=== PATIENT | female | born 1995 | race Two or more races ===

== ENCOUNTER 2016-12-09 05:31 | Inpatient (IN) | payer MEDICAID, OTHER ==
[~2016-12-09] VITALS: Ht 162.6 cm; Wt 89.4 kg
[2016-12-09] VITALS (7 sets, daily range): BP systolic 112–129; BP diastolic 70–81; PULSE 77–85; RESP 15–22; O2SAT 96–97
[~2016-12-09 05:31] MED LIST: ONDA8TAB10 PO
[2016-12-09] MEDS ORDERED: 0.9% Sodium Chloride 1,000 ML IV ONE ×2 (05:49→06:31)
[2016-12-09] MEDS ORDERED: Pantoprazole 4 mg/mL 10 mL Inj IVPUSH ONE (05:50)
[2016-12-09] MEDS ORDERED: Ondansetron 2 mg/mL 2 mL Inj IVPUSH ONE (05:50)
--- NOTE | 2016-12-09 06:08 | ED.REPORT ---
HPI-Abd Pain F Under 39 Date of Service Dec 09, 2016 ED Provider: Taylor Cha MD Patient is a 21 female who presents to the ED via EMS with RLQ and RUQ abdominal pain onset 1900 last evening. She reports that she can't sleep due to pain and was tossing and turning all night. She denies any other kinds of medical issues or allergies to medication. She denies cough and fever. Pt is not currently on control or sexually active. Dr. Daly is her PCP. Nursing Notes Stated Complaint: ABDOMINAL PAIN Chief Complaint: Female Abdominal Pain Nursing Notes Reviewed: Yes Allergies: Coded Allergies: No Known Allergies (Unverified Allergy, Unknown, 12/09/16) Scheduled PRN Ondansetron ODT (Ondansetron ODT) 8 Mg Tab.rapdis 8 MG PO Q4H PRN PRN For Nausea General Time Seen by MD: 06:06 Chief Complaint Abdominal pain Hx Obtained From: Patient Arrived By: Ambulance Sudden in Onset?: Yes Onset Occurred: 9 - 12 hours ago Symptom Duration: Since onset Progression since Onset: Unchanged Location: : Epigastric: RLQ: RUQ: Suprapubic Quality: Painful Radiation: : Does not radiate Severity: Current: Severe Recent Healthcare: No recent doctor visit, No recent hospitalization Similar Sx Previous: No Past Medical History Past Medical History Chlamydia in 2010 Reports: Asthma Past Surgical History None reported Smoking History Current Every Day Smoker Social History Drug Use: THC Other Social History: Local resident Ambulatory Status Independent Review of Systems Constitutional: Denies: Fever Respiratory: Denies: Non-productive cough GI: Reports: Abdominal pain, Denies: Vomiting Complete sys rev & neg: except as marked. Physical Exam Initial Vital Signs Vital Signs (First) Date Time Temp Pulse Resp B/P Pulse Ox O2 Delivery O2 Flow Rate FiO2 12/09/16 05:38 38.0 78 18 129/81 97 Room Air Initial VS: Reviewed Head / Eyes: Atraumatic, Normocephalic, PERRL ENT: Mucous membranes moist, Conjunctiva normal, No scleral icterus Neck: Supple, Non-tender, Full range of motion Extremities: Vascular intact, Neuro intact, No swelling, No tenderness Skin: Warm, Dry, No cyanosis Neurologic: Alert, Oriented, Nonfocal Psychiatric: Mood/affect normal, Behavior normal, Normal thought content General/Constitutional: Awake, Cooperative Distress / Hydration: Positive: Distress moderate Behavior: Positive: Anxious, Tearful Respiratory / Chest: Atraumatic, Breath sounds NL, Breath sounds = bilat, No respiratory distress, No rales, No rhonchi, No wheezing, No retractions Cardiovascular: Heart rate NL, Regular rhythm, Heart sounds NL, No gallop, No murmurs, No rubs Tenderness/Guarding/Rebound: Positive: Tender RLQ..., Tender RUQ..., Tender epigastric, Tender suprapubic Back: Atraumatic, Inspection NL, Full range of motion, Painless range of motion , Non-tender, No midline vertebral tend Interpretation & Diagnostics Interpretation & Diagnostics: ABDOMINAL US IMPRESSION: Normal gallbladder, normal kidney, appendix not seen. Wet read ED physician: Taylor Cha MD Lab Results Interpretation Result Diagram: 12/09/16 0530 12/09/16 0530 Test 12/09/16 05:30 12/09/16 07:33 White Blood Count 23.4th/mm3 (3.8-10.1) Red Blood Count 4.56mil/mm3 (3.90-5.20) Hemoglobin 14.1g/dL (12.0-15.6) Hematocrit 43.0% (35.0-46.0) Mean Corpuscular Volume 94.3fL (81-100) Mean Corpuscular Hemoglobin 30.9pg (27.0-35.0) Mean Corpuscular Hemoglobin Concent 32.8% (32.0-37.0) Red Cell Distribution Width 13.8% (12.3-15.4) Platelet Count 260bil/L (150-400) Neutrophils (%) (Auto) 86.2% (40-74) Lymphocytes (%) (Auto) 7.7% (14-46) Monocytes (%) (Auto) 4.5% (4-12) Eosinophils (%) (Auto) 1.2% (0-5) Basophils (%) (Auto) 0.1% (0-3) Hold Purple Top Tube Received (Received) Prothrombin Time 10.3sec (8.1-12.5) Prothromb Time International Ratio 0.96ratio Hold Blue Top Tube Received (Received) Sodium Level 139mEq/L (134-144) Potassium Level 4.5mEq/L (3.5-5.2) Chloride Level 100mEq/L (97-108) Carbon Dioxide Level 28mmol/L (18-29) Blood Urea Nitrogen 13mg/dL (6-20) Creatinine 0.96mg/dL (0.57-1.00) Estimat Glomerular Filtration Rate 104mL/min (>59) Glucose Level 98mg/dL (60-99) Calcium Level 9.3mg/dL (8.5-10.1) Magnesium Level 2.0mg/dL (1.6-2.6) Total Bilirubin 0.2mg/dL (0.0-1.2) Aspartate Amino Transf (AST/SGOT) 13U/L (0-50) Alanine Aminotransferase (ALT/SGPT) 9U/L (0-32) Alkaline Phosphatase 90U/L (25-150) Total Protein 7.9g/dL (6.4-8.4) Albumin 4.6g/dL (3.4-5.0) Lipase 21U/L (13-60) Hold [place] Top Tube Received (Received) Urine Color Straw (YELLOW) Urine Appearance Hazy (CLEAR,HAZY) Urine pH 5.5 (5.0-8.0) Urine Specific [place] 1.020 (1.003-1.035) Urine Protein Negativemg/dL (NEG,TRACE) Urine Glucose (UA) Negativemg/dL (NEGATIVE) Urine Ketones Negativemg/dL (NEGATIVE) Urine Occult Blood Negative (NEGATIVE) Urine Nitrite Negative (NEGATIVE) Urine Bilirubin Negative (NEGATIVE) Urine Urobilinogen Normalmg/dL (NORMAL) Urine Leukocyte Esterase Negative (NEGATIVE) Urine RBC 0-2/hpf (0-2) Urine WBC 0-5/hpf (0-5) Urine Epithelial Cells Occasional/hpf (NONE-MOD) Urine Crystals None seen (NONE SEEN) Urine Bacteria None/hpf (NONE-FEW) Urine Hyaline Casts None/lpf (NONE) Urine Granular Casts None seen (NONE SEEN) Urine Waxy Casts None seen (NONE SEEN) Urine Red Blood Cell Casts None seen (NONE SEEN) Urine White Blood Cell Casts None seen (NONE SEEN) Urine Mucus None seen (None Seen) Urine Trichomonas None seen (NONE SEEN) Urine Yeast None (NONE SEEN) Urinalysis Comment None Urine Culture Reflexed Not indicated CT Abd / Pelvis Interpretation IMPRESSION: 1. Segmental wall thickening of the descending and rectosigmoid colon consistent with a probable infectious or inflammatory colitis. Dictated by: Ke Hay M.D. on 12/09/2016 at 9:29 Approved by: Ke Hay M.D. on 12/09/2016 at 9:32 Study type: Abdominal CT no contrast Interpretation / Wet Read by: Interpret - Radiologist Re-Eval/Medical Decision Med Decision/Clinical Course Med Decision/Clinical Course: Presents with significant abdominal pain without guarding developing peritoneal signs. Significant leukocytosis, pain is minimally controlled with small doses of Dilaudid. Findings from CT scan with the patient. Given her significant pain significant leukocytosis recommendation was to remain in the hospital with IV antibiotics and pain control for at least 24 hours along with further evaluation Re-Evaluation/Progress #1: Time of Eval: 08:21 Patient Status: Condition unchanged, Pain improved Re-Evaluation/Progress Note: Pt rechecked. Informed pt of normal US results and plan for abdominal CT. Re-Evaluation/Progress #2: Time of Eval: 11:31 Patient Status: Condition worsened, Pain worse Re-Evaluation/Progress Note: Pt rechecked and is still in significant pain. CT scan shows inflammation and WBC is elevated. Informed pt of diagnosis of colitis and need for admission. Pt understands and agrees with plan. All questions addressed. Consultation : Consulted With: Hospitalist Call Returned at: 13:15 Corporate Services Manager: Will see patient, Agrees with plan, Accepts admit Counseled Regarding: Diagnosis, Lab results, Need for admission Discharge & Departure Primary Impression: Colitis Additional Impression: Abdominal pain Abdominal location: unspecified location Qualified Code: R10.9 - Unspecified abdominal pain Disposition: ADMITTED TO HOSPITAL Discharge Condition All VS Reviewed: Yes Condition: Stable Referrals: Melvina Daly MD (PCP) Scribe Attestation Portion of this note were transcribed by Emeka Gasca. I, Dr. Cha, personally performed the history, physical exam, and medical decision-making: I reviewed and confirmed the accuracy for the information in the transcribed note. Signed by: gina Carrillo, 12/09/16 1300 copies to: Melvina Daly MD, Shawna L MD Dec 09, 2016 06:08 EMEKA GASCA Dec 09, 2016 06:34
[2016-12-09 06:32] LABS: BASOPHILS % (AUTO) 0.1 % (0-3); EOSINOPHILS % (AUTO) 1.2 % (0-5); MONOCYTES % (AUTO) 4.5 % (4-12); Mean Corpuscular Hemoglobin 30.9 pg (27.0-35.0); Mean Corpuscular Volume 94.3 fL (81-100); NEUTROPHILS % (AUTO) 86.2 % (40-74); Platelet Count 260 bil/L (150-400)
[2016-12-09 06:41] LABS: INR 0.96 ratio
[2016-12-09] MEDS: HYDROmorphone 0.5 mg/0.5 mL iSecure Syringe IVPUSH PRN ×2 (07:30→11:28)
[2016-12-09 07:52] LABS: APPEARANCE,URINE HAZY (CLEAR,HAZY); COLOR,URINE STRAW (YELLOW); PH,URINE 5.5 (5.0-8.0)
[2016-12-09 07:53] LABS: OCCULT BLOOD,URINE NEGATIVE (NEGATIVE); UROBILINOGEN,URINE NORMAL (NORMAL)
--- NOTE | 2016-12-09 09:33 | DRSVH ---
PROCEDURE: CT ABDOMEN AND PELVIS WITH CONTRAST (PNL-7102) INDICATIONS: leukocytosis, severe abdominal pain TECHNIQUE: After the administration of oral and intravenous contrast, 5 mm thick sections acquired from the diap hragms to the symphysis. 5 mm thick coronal and sagittal reformats were performed. For radiation do se reduction, the following was used: automated exposure control, adjustment of mA and/or kV accordi ng to patient size. COMPARISON: [facility], US, US ABDOMEN, 12/09/2016, 7:25. FINDINGS: Image quality: Mild motion artifact is present. ABDOMEN: Lung bases: There is mild dependent atelectasis. Heart size is normal. Solid organs: Liver and spleen are normal in size and enhancement. Gallbladder appears within sergei l limits without calcified gallstones. Biliary system is non-dilated. Pancreas enhances normally. No adrenal nodules. Kidneys are normal in size and enhancement, without hydronephrosis. Peritoneum and bowel: Stomach and small bowel loops are normal in caliber and wall thickness. The a ppendix is normal in appearance. There is mild segmental wall thickening of the descending and recto sigmoid colon consistent with a nonspecific colitis. No free fluid or air. Nodes and vessels: No retroperitoneal or mesenteric adenopathy. Aorta and inferior vena cava are no rmal in caliber. Miscellaneous: No ventral hernias. PELVIS: Genitourinary: Bladder wall thickness is normal. Miscellaneous: No inguinal hernias or adenopathy. Bones: No suspicious bony lesions. No vertebral body compression fractures. IMPRESSION: 1. Segmental wall thickening of the descending and rectosigmoid colon consistent with a probable inf ectious or inflammatory colitis. Dictated by: Ke Hay M.D. on 12/09/2016 at 9:29 Approved by: Ke Hay M.D. on 12/09/2016 at 9:32
--- NOTE | 2016-12-09 11:12 | DRSVH ---
PROCEDURE: US ABDOMEN INDICATIONS: Right upper and lower quad abdominal pain. TECHNIQUE: Real-time scanning was performed of the abdominal and retroperitoneal organs, with image documentatio n. COMPARISON: None. FINDINGS: Liver: Liver is normal in size and homogeneous in echotexture. Gallbladder: Gallbladder is semicontracted. No gallstones. No gallbladder wall thickening, perichol ecystic fluid or sonographic Ochoa's sign. Biliary ducts: Intrahepatic bile ducts are non-dilated. Extrahepatic bile duct caliber is normal at 3 mm. Normal is 6-7 mm or less in diameter, or 10 mm or less post-cholecystectomy. Pancreas: Visualized portions of the pancreas are sonographically normal. Spleen: Spleen is normal in size and homogeneous in echotexture. Kidneys: Kidneys are normal in size and echotexture. Right kidney measures 11.5 cm in length. Left kidney measures 10.4 cm in length. No hydronephrosis or nephrolithiasis. No solid masses. Aorta: Visualized aorta is normal in caliber at less than 3 cm. Iliacs: Proximal common iliac arteries are normal in caliber at less than 2.5 cm. IVC: Intrahepatic inferior vena cava is patent. Miscellaneous: No free abdominal fluid. Hyperdynamic bowel loops are noted. The appendix is not vis ualized. IMPRESSION: 1. Semicontracted gallbladder. No gallstones, gallbladder wall thickening, pericholecystic fluid lupe ection or sonographic Ochoa sign. 2. Appendix is not identified. Acute appendicitis is not excluded. 3. Hyperdynamic bowel loops are noted. Dictated by: Keri Yo M.D. on 12/09/2016 at 11:06 Approved by: Keri Yo M.D. on 12/09/2016 at 11:10
[2016-12-09] MEDS ORDERED: HYDROmorphone 1 mg/mL Inj IVPUSH ONE (11:35)
[2016-12-09] MEDS ORDERED: levoFLOXacin Inj 750 MG in IV Premix 1 EACH IV ONE (11:35)
[2016-12-09] MEDS ORDERED: metroNIDAZOLE Inj 1,000 MG in IV Premix 1 EACH IV ONE (11:35)
[2016-12-09] MEDS: HYDROmorphone 1 mg/mL Inj IVPUSH PRN ×2 (13:47→14:24)
[2016-12-09] MEDS ORDERED: NAPR220C11 PO (13:59)
[2016-12-09] MEDS ORDERED: IBUP200C PO (13:59)
[2016-12-09] MEDS ORDERED: [UNRECOGNIZED DRUG - CODE] PO (14:00)
[2016-12-09] MEDS ORDERED: 0.9% Sodium Chloride 1,000 ML IV SCH (14:25)
[2016-12-09] MEDS ORDERED: Alum-Mag Hydrox-Simeth 30 mL Suspension PO PRN (14:25)
[2016-12-09] MEDS ORDERED: Ondansetron 2 mg/mL 2 mL Inj IVPUSH PRN (14:25)
[2016-12-09] MEDS ORDERED: HYDROmorphone PCA 0.2 mg/mL 30 mL Inj IV PRN (14:25)
--- NOTE | 2016-12-09 14:31 | NUR ---
Admit nurse note Partial admission assessment completed in the ER. PT. c/o 05/26 pain with only momentary relief from dilaudid. More dilaudid given per request. Pt. reports having moved multiple times recently and is now living with a roommate. She states she feels safe in her living situation and visits once in a while with her two daughters (4 and 2 years old) who live with her mother in law. Social work referral made to check in with pt. to see if she has any other referral needs. NKA verified. Med rec completed per pt. history. She states she takes quite a bit of aleve and ibuprofen for pain when she has it. Pt. oriented to room and call dunn. Report given to Colten Yeboah.
--- NOTE | 2016-12-09 14:37 | NUR ---
Admit to MOC Received report from Er nurse and Admit nurse. patient is not at MOC yet. Awaiting patient from ER.
[2016-12-09] MEDS ORDERED: 0.9% Sodium Chloride 250 ML ONE (15:02)
--- NOTE | 2016-12-09 15:48 | NUR ---
ROOM WORKER/pain management Patient is alert and oriented X3. Able to make needs known. ROOM WORKER pump set up PRN per orders. C/o pain 8/10 to abdomen and holding abdomen. PRN Dilaudid given by nurse in the ER per report. Education provided to patient for ROOM WORKER pump button use. Stable vital signs. Room air and stable Oxygen. IV ABO running from the ER. left AC dressing clean dry, intact, and asymptomatic. Call light with in reach for safety. At home patient leaves alone. See admit nurse notes. General diet. Continent of bowel and bladder. patient using bed side commode r/t pain to abdomen. Continue to monitor vital signs, pain to abdomen, and safety.
[2016-12-09] MEDS ORDERED: Dextrose 5% 500 ML IV SCH (17:56)
[2016-12-09] MEDS ORDERED: HYDROmorphone 0.5 mg/0.5 mL iSecure Syringe IVPUSH PRN (18:00)
[2016-12-09] MEDS ORDERED: MetoCLOpramide 5 mg/mL 2 mL Inj IVPUSH PRN (18:00)
--- NOTE | 2016-12-09 18:01 | PCM.HPMED ---
Subjective Date of Service Dec 09, 2016 Primary Provider: Admitting Physician: Yaa Gilbert MD Primary Care Physician: Melvina Daly MD Attending Physician: Yaa Gilbert MD Admit Status: From the Emergency Department, Full Admit, Non-Telemetry Chief Complaint: Abdominal pain History of Present Illness: This is a 21-year-old female who presents to the emergency room via EMS with right sided abdominal pain onset yesterday evening about 7 PM. She denied any diarrhea or alteration in bowel movements. He denies any nausea or vomiting. She denies prior history of similar. She denies any fevers or chills. She notes the pain starts in the right upper area goes to the right lower and to the suprapubic area. She says her level of presentation to the emergency room of pain is 10 out of 10. There is no family history of inflammatory bowel disease. Her evaluation in the emergency room includes white count of 23.4 with 86% polys 8% lymphs abdominal ultrasound revealed normal gallbladder normal kidney appendix was not seen. UA was negative for infection urine test was negative. CT of abdomen is as follows: PROCEDURE: CT ABDOMEN AND PELVIS WITH CONTRAST ([id number]) INDICATIONS: leukocytosis, severe abdominal pain TECHNIQUE: After the administration of oral and intravenous contrast, 5 mm thick sections acquired from the diaphragms to the symphysis. 5 mm thick coronal and sagittal reformats were performed. For radiation dose reduction, the following was used : automated exposure control, adjustment of mA and/or kV according to patient size. COMPARISON: [facility], , US ABDOMEN, 12/09/2016, 7:25. FINDINGS: Image quality: Mild motion artifact is present. ABDOMEN: Lung bases: There is mild dependent atelectasis. Heart size is normal. Solid organs: Liver and spleen are normal in size and enhancement. Gallbladder appears within normal limits without calcified gallstones. Biliary system is non-dilated. Pancreas enhances normally. No adrenal nodules. Kidneys are normal in size and enhancement, without hydronephrosis. Peritoneum and bowel: Stomach and small bowel loops are normal in caliber and wall thickness. The appendix is normal in appearance. There is mild segmental wall thickening of the descending and rectosigmoid colon consistent with a nonspecific colitis. No free fluid or air. Nodes and vessels: No retroperitoneal or mesenteric adenopathy. Aorta and inferior vena cava are normal in caliber. Miscellaneous: No ventral hernias. PELVIS: Genitourinary: Bladder wall thickness is normal. Miscellaneous: No inguinal hernias or adenopathy. Bones: No suspicious bony lesions. No vertebral body compression fractures. IMPRESSION: 1. Segmental wall thickening of the descending and rectosigmoid colon consistent with a probable infectious or inflammatory colitis. Dictated by: Ke Hay M.D. on 12/09/2016 at 9:29 Approved by: Ke Hay M.D. on 12/09/2016 at 9:32 ER doctor consult with infectious disease Dr. Hermosillo and recommended initiating IV Levaquin and IV Flagyl. Review of Systems: All other review of systems are reviewed and are negative except for as in history of present illness Allergies Coded Allergies: No Known Allergies (Unverified Allergy, Unknown, 12/09/16) Home Medications None per patient PMH Past Medical History Chlamydia in 2010 Reports: Asthma Past Surgical History None reported Family History Patient denies any family history of inflammatory bowel disease. Social History Occupation: works at [employer] Hx Alcohol Use: Yes Alcoholic Drinks Per Day: 16-20 oz beer Hx Substance Use: Yes (marijuana) Smoking Status: Current Every Day Smoker Living Arrangement: Alone Exam Vital Signs Vital Sign - Last Date Time Temp Pulse Resp B/P Pulse Ox O2 Delivery O2 Flow Rate FiO2 12/09/16 16:03 15 97 12/09/16 14:55 36.9 85 125/75 Room Air Intake and Output 12/08/16 12/08/16 12/09/16 Cumulative From/Thru 15:00 23:00 07:00 12/09/16 05:38 - 12/09/16 06:01 Intake Total 1000 ml 1000 ml Balance 1000 ml 1000 ml Intake IV Total 1000 ml 1000 ml Exam Constitutional: Young female in moderate pain distress Head: Normocephalic atraumatic neck: No adenopathy noted Chest: Clear to auscultation Cor: Regular rate and rhythm S1-S2 without murmur Abdomen: Soft, bowel sounds are present, diffuse tenderness with no rebound or guarding Extremities: No pedal edema Psych: Mood is somewhat anxious Skin: No rashes Neuro: Alert and oriented 3, motor strength is intact bilaterally Lab and Diagnostics Labs Laboratory Tests 72 Hours Test 12/09/16 05:30 12/09/16 07:33 White Blood Count 23.4th/mm3 (3.8-10.1) Red Blood Count 4.56mil/mm3 (3.90-5.20) Hemoglobin 14.1g/dL (12.0-15.6) Hematocrit 43.0% (35.0-46.0) Mean Corpuscular Volume 94.3fL (81-100) Mean Corpuscular Hemoglobin 30.9pg (27.0-35.0) Mean Corpuscular Hemoglobin Concent 32.8% (32.0-37.0) Red Cell Distribution Width 13.8% (12.3-15.4) Platelet Count 260bil/L (150-400) Neutrophils (%) (Auto) 86.2% (40-74) Lymphocytes (%) (Auto) 7.7% (14-46) Monocytes (%) (Auto) 4.5% (4-12) Eosinophils (%) (Auto) 1.2% (0-5) Basophils (%) (Auto) 0.1% (0-3) Hold Purple Top Tube Received (Received) Prothrombin Time 10.3sec (8.1-12.5) Prothromb Time International Ratio 0.96ratio Hold Blue Top Tube Received (Received) Sodium Level 139mEq/L (134-144) Potassium Level 4.5mEq/L (3.5-5.2) Chloride Level 100mEq/L (97-108) Carbon Dioxide Level 28mmol/L (18-29) Blood Urea Nitrogen 13mg/dL (6-20) Creatinine 0.96mg/dL (0.57-1.00) Estimat Glomerular Filtration Rate 104mL/min (>59) Glucose Level 98mg/dL (60-99) Calcium Level 9.3mg/dL (8.5-10.1) Magnesium Level 2.0mg/dL (1.6-2.6) Total Bilirubin 0.2mg/dL (0.0-1.2) Aspartate Amino Transf (AST/SGOT) 13U/L (0-50) Alanine Aminotransferase (ALT/SGPT) 9U/L (0-32) Alkaline Phosphatase 90U/L (25-150) Total Protein 7.9g/dL (6.4-8.4) Albumin 4.6g/dL (3.4-5.0) Lipase 21U/L (13-60) Hold [place] Top Tube Received (Received) Urine Color Straw (YELLOW) Urine Appearance Hazy (CLEAR,HAZY) Urine pH 5.5 (5.0-8.0) Urine Specific [place] 1.020 (1.003-1.035) Urine Protein Negativemg/dL (NEG,TRACE) Urine Glucose (UA) Negativemg/dL (NEGATIVE) Urine Ketones Negativemg/dL (NEGATIVE) Urine Occult Blood Negative (NEGATIVE) Urine Nitrite Negative (NEGATIVE) Urine Bilirubin Negative (NEGATIVE) Urine Urobilinogen Normalmg/dL (NORMAL) Urine Leukocyte Esterase Negative (NEGATIVE) Urine RBC 0-2/hpf (0-2) Urine WBC 0-5/hpf (0-5) Urine Epithelial Cells Occasional/hpf (NONE-MOD) Urine Crystals None seen (NONE SEEN) Urine Bacteria None/hpf (NONE-FEW) Urine Hyaline Casts None/lpf (NONE) Urine Granular Casts None seen (NONE SEEN) Urine Waxy Casts None seen (NONE SEEN) Urine Red Blood Cell Casts None seen (NONE SEEN) Urine White Blood Cell Casts None seen (NONE SEEN) Urine Mucus None seen (None Seen) Urine Trichomonas None seen (NONE SEEN) Urine Yeast None (NONE SEEN) Urinalysis Comment None Urine Culture Reflexed Not indicated Result Diagram: 12/09/1652912/09/16529 Assessment & Plan # Acute abdominal pain, present on admission CAT scan reveals left lower quadrant colitis and was treated with IV Levaquin and IV Flagyl as recommended per infectious disease PUD[employer]ER [employer]LE [employer]ING hydromorphone Ketorolac IV when necessary pain IV famotidine twice a day Check stool PCR Check lactic acid level Clear liquid diet IV fluid hydration # Leukocytosis, acute, present on admission Most likely secondary to acute colitis # DVT prophylaxis Placed on subcutaneous Lovenox # CODE STATUS Patient is full code Pain Evaluation: Adequate Pain Control GI Prophylaxis: H2 jim VTE Prophylaxis: Sub-Q Enoxaparin Time spent 60 minutes Yaa Gilbert MD Dec 09, 2016 18:01
[2016-12-09] MEDS: metroNIDAZOLE Inj 500 MG in IV Premix 1 EACH IV SCH (18:32)
[2016-12-09] MEDS: Ketorolac 15 mg/mL Inj IVPUSH PRN (18:46)
[2016-12-09] MEDS: 0.9% Sodium Chloride 1,000 ML IV SCH (20:41)
[2016-12-09] MEDS: Famotidine Inj 20 MG in IV Premix 1 EACH IV SCH (20:42)
[2016-12-09] MEDS: HYDROmorphone PCA 0.2 mg/mL 30 mL Inj IV PRN (22:47)
[2016-12-10] VITALS (12 sets, daily range): BP systolic 108–131; BP diastolic 60–81; PULSE 57–70; RESP 14–24; O2SAT 97–100
[2016-12-10] MEDS: metroNIDAZOLE Inj 500 MG in IV Premix 1 EACH IV SCH ×5 (00:21→23:02)
[2016-12-10] MEDS: Ketorolac 15 mg/mL Inj IVPUSH PRN ×2 (04:24→11:34)
--- NOTE | 2016-12-10 06:09 | NUR ---
NOCS PT showered late in evening. Found pt to be quite diaphoretic at one point, but was afebrile at the time. V/S WNL. PT on dilaudid director of first impressions at max dose. She continues to report her pain at the lowest a 7/10. She also c/o neck pain and was given toradol once for which she voiced no relief. PT has been mildly sedated through shift. V/S WNL. She is receiving flagyl iv. Tolerating a clear liquid diet with no nausea or emesis this shift. Up to BR independently. PT states she is "going to ask the MD for something stronger." This RN explained that dilaudid was top of the line for strength. She fell asleep while I was talking with her. Will CTM progress. Encouraged some alternatives for pain mgmt. Pt did not follow suggestions.
[2016-12-10 07:38] LABS: BASOPHILS % (AUTO) 0.1 % (0-3); EOSINOPHILS % (AUTO) 1.2 % (0-5); MONOCYTES % (AUTO) 4.9 % (4-12); Mean Corpuscular Hemoglobin 30.1 pg (27.0-35.0); Mean Corpuscular Volume 95.1 fL (81-100); NEUTROPHILS % (AUTO) 75.9 % (40-74); Platelet Count 187 bil/L (150-400)
[2016-12-10] MEDS: HYDROmorphone PCA 0.2 mg/mL 30 mL Inj IV PRN (07:40)
[2016-12-10] MEDS: 0.9% Sodium Chloride 1,000 ML IV SCH ×3 (07:55→18:00)
[2016-12-10] MEDS: Famotidine Inj 20 MG in IV Premix 1 EACH IV SCH ×2 (08:47→22:24)
[2016-12-10] MEDS: levoFLOXacin Inj 500 MG in IV Premix 1 EACH IV SCH (09:28)
[2016-12-10] MEDS: Dextrose 5% 500 ML IV SCH (12:03)
[2016-12-10] MEDS ORDERED: MetoCLOpramide 5 mg/mL 2 mL Inj IVPUSH PRN (12:05)
[2016-12-10] MEDS ORDERED: hydrOXYzine Inj 25 MG/1 mL SDV IM PRN (12:05)
[2016-12-10] MEDS ORDERED: MethylprednisoLONE Sodium Succinate 40 mg/mL Inj IVPUSH SCH (12:10)
[2016-12-10] MEDS: Morphine PCA 1 mg/mL 30 mL Inj IV PRN (12:58)
--- NOTE | 2016-12-10 13:20 | NUR ---
Pain Pt sedated but easily aroused during initial morning rounding, pt reports pain at 8/10. After ambulating to bathroom pt crying in pain and rates pain 10/10. Loading dose of 0.3mg Dilaudid administered through FABRICATING MACHINE OPERATOR. Pt continues to report 10/10 pain. Pt sedated, but easily arousable. SpO2 high 90's RA, RR 12-16. Pt reports dilaudid ineffective and requesting FABRICATING MACHINE OPERATOR medication be changed. Hospitalist notified. Order received to change FABRICATING MACHINE OPERATOR to Morphine.
--- NOTE | 2016-12-10 13:22 | PCM.PNMED ---
Subjective Date of Service Dec 10, 2016 Subjective Patient is very tearful saying pain medication does not work at all. I did ask if she is thin and any other situation where she needed pain medication and she mentioned a while ago she was hospitalized at [facility] and required IV morphine for pain control. At times she is angry saying why do not you know this. She has had no nausea or vomiting. Exam Vital Signs Vital Sign - Last Date Time Temp Pulse Resp B/P Pulse Ox O2 Delivery O2 Flow Rate FiO2 12/10/16 07:30 14 99 12/10/16 06:44 36.6 60 108/69 Room Air Intake and Output 12/09/16 12/09/16 12/10/16 Cumulative From/Thru 15:00 23:00 07:00 12/09/16 05:38 - 12/10/16 05:42 Intake Total 0 ml 2205 ml 3205 ml Balance 0 ml 2205 ml 3205 ml Intake Oral 1180 ml 1180 ml IV Total 0 ml 1025 ml 2025 ml # Voids 4 4 Exam Constitutional: Young female who appears to be in pain distress Head: Normocephalic atraumatic Chest: Clear to auscultation Cor: Regular rate and rhythm S1-S2 without murmur Abdomen: Soft, tender diffusely, bowel sounds present Extremities: No pedal edema Neuro: Alert and oriented 3, motor strength is intact bilaterally Lab and Diagnostics Laboratory Tests 72 Hours Test 12/09/16 05:30 12/09/16 07:33 12/09/16 18:00 12/10/16 07:15 White Blood Count 23.4th/mm3 (3.8-10.1) 15.5th/mm3 (3.8-10.1) Red Blood Count 4.56mil/mm3 (3.90-5.20) 3.66mil/mm3 (3.90-5.20) Hemoglobin 14.1g/dL (12.0-15.6) 11.0g/dL (12.0-15.6) Hematocrit 43.0% (35.0-46.0) 34.8% (35.0-46.0) Mean Corpuscular Volume 94.3fL (81-100) 95.1fL (81-100) Mean Corpuscular Hemoglobin 30.9pg (27.0-35.0) 30.1pg (27.0-35.0) Mean Corpuscular Hemoglobin Concent 32.8% (32.0-37.0) 31.6% (32.0-37.0) Red Cell Distribution Width 13.8% (12.3-15.4) 13.9% (12.3-15.4) Platelet Count 260bil/L (150-400) 187bil/L (150-400) Neutrophils (%) (Auto) 86.2% (40-74) 75.9% (40-74) Lymphocytes (%) (Auto) 7.7% (14-46) 17.7% (14-46) Monocytes (%) (Auto) 4.5% (4-12) 4.9% (4-12) Eosinophils (%) (Auto) 1.2% (0-5) 1.2% (0-5) Basophils (%) (Auto) 0.1% (0-3) 0.1% (0-3) Hold Purple Top Tube Received (Received) Prothrombin Time 10.3sec (8.1-12.5) Prothromb Time International Ratio 0.96ratio Hold Blue Top Tube Received (Received) Sodium Level 139mEq/L (134-144) 134mEq/L (134-144) Potassium Level 4.5mEq/L (3.5-5.2) 3.9mEq/L (3.5-5.2) Chloride Level 100mEq/L (97-108) 98mEq/L (97-108) Carbon Dioxide Level 28mmol/L (18-29) 26mmol/L (18-29) Blood Urea Nitrogen 13mg/dL (6-20) 9mg/dL (6-20) Creatinine 0.96mg/dL (0.57-1.00) 0.81mg/dL (0.57-1.00) Estimat Glomerular Filtration Rate 104mL/min (>59) 127mL/min (>59) Glucose Level 98mg/dL (60-99) 102mg/dL (60-99) Calcium Level 9.3mg/dL (8.5-10.1) 8.3mg/dL (8.5-10.1) Magnesium Level 2.0mg/dL (1.6-2.6) Total Bilirubin 0.2mg/dL (0.0-1.2) 0.6mg/dL (0.0-1.2) Aspartate Amino Transf (AST/SGOT) 13U/L (0-50) 7U/L (0-50) Alanine Aminotransferase (ALT/SGPT) 9U/L (0-32) 6U/L (0-32) Alkaline Phosphatase 90U/L (25-150) 60U/L (25-150) Total Protein 7.9g/dL (6.4-8.4) 5.8g/dL (6.4-8.4) Albumin 4.6g/dL (3.4-5.0) 3.7g/dL (3.4-5.0) Lipase 21U/L (13-60) Hold [place] Top Tube Received (Received) Urine Color Straw (YELLOW) Urine Appearance Hazy (CLEAR,HAZY) Urine pH 5.5 (5.0-8.0) Urine Specific [place] 1.020 (1.003-1.035) Urine Protein Negativemg/dL (NEG,TRACE) Urine Glucose (UA) Negativemg/dL (NEGATIVE) Urine Ketones Negativemg/dL (NEGATIVE) Urine Occult Blood Negative (NEGATIVE) Urine Nitrite Negative (NEGATIVE) Urine Bilirubin Negative (NEGATIVE) Urine Urobilinogen Normalmg/dL (NORMAL) Urine Leukocyte Esterase Negative (NEGATIVE) Urine RBC 0-2/hpf (0-2) Urine WBC 0-5/hpf (0-5) Urine Epithelial Cells Occasional/hpf (NONE-MOD) Urine Crystals None seen (NONE SEEN) Urine Bacteria None/hpf (NONE-FEW) Urine Hyaline Casts None/lpf (NONE) Urine Granular Casts None seen (NONE SEEN) Urine Waxy Casts None seen (NONE SEEN) Urine Red Blood Cell Casts None seen (NONE SEEN) Urine White Blood Cell Casts None seen (NONE SEEN) Urine Mucus None seen (None Seen) Urine Trichomonas None seen (NONE SEEN) Urine Yeast None (NONE SEEN) Urinalysis Comment None Urine Culture Reflexed Not indicated Lactic Acid Level 0.7mmol/L (0.4-2.0) Result Diagram: 12/10/16 0715 12/09/16 1800 Assessment & Plan # Acute abdominal pain, present on admission CAT scan reveals left lower quadrant colitis and was treated with IV Levaquin and IV Flagyl as recommended per infectious disease DRILL SHARPENER OPERATOR hydromorphone Ketorolac IV when necessary pain IV famotidine twice a day Check stool PCR Check lactic acid level Clear liquid diet IV fluid hydration We will go ahead and check a sedimentation rate, CRP and due to her poor pain control will check urine drug screen to urine which was obtained from the ER and if this is not possible we will go ahead and check one now We will also cover for possibility of inflammatory bowel disease with IV Solu- Medrol 20 mg every 8 hours We will DC Dilaudid DRILL SHARPENER OPERATOR as patient requests and switch it to a morphine DRILL SHARPENER OPERATOR We will also add IM hydroxyzine when necessary Consider GI consultation if not much improvement in the next 24-48 hours # Leukocytosis, acute, present on admission Most likely secondary to acute colitis # DVT prophylaxis Placed on subcutaneous Lovenox # CODE STATUS Patient is full code GI Prophylaxis: H2 jim VTE Prophylaxis: Sub-Q Enoxaparin Time spent 30 minutes Yaa Gilbert MD Dec 10, 2016 13:22
--- NOTE | 2016-12-10 14:07 | NUR ---
Social work note - Initial assessment Donna Camara is a 21 yr old who was admitted for abdominal pain/colitis. EMR reviewed: Pt has [employer] insurance, her PCP is Dr Daly. ELECT EQUIP MAINT ENG met with pt - Introduced D/C planning and explained Social work role. Pt states that she has an apartment in [place]. She is independent at baseline. She recently got a job at [employer] in [place]. Pt admits that the last few years have been bad. She is and her . She has been homeless, living in shelters much of the winter because her family will not let her stay with them. She states that she has two children who are living with her ex-'s family. She has sporadic visitation but states she is going back to work, getting housing so that she can try to get custody. Pt endorses a lot of anxiety, no open mental health services - denies wanting counseling. She states that she sometimes uses marijuana but said she had to cut back because she went back to work. Denies any other drugs or alcohol. ELECT EQUIP MAINT ENG offered community resources, Pt denies any need. SW will follow if needs arise. ELECT EQUIP MAINT ENG provided pt with DPOA paperwork as pt does not have an advanced directive. Provided education. Plan: Pt to go home when medically stable - states she will ask a friend to help with transportation. ULYSSES Engle
[2016-12-10] MEDS: Ondansetron 2 mg/mL 2 mL Inj IVPUSH PRN (15:18)
--- NOTE | 2016-12-10 18:15 | NUR ---
Nausea Pt reported nausea after getting out of shower around 1400. IV Zofran given. Pt reports Zofran was effective and denies having any nausea since.
[2016-12-10] MEDS: MethylprednisoLONE Sodium Succinate 40 mg/mL Inj IVPUSH SCH (22:24)
[2016-12-11] VITALS (8 sets, daily range): BP systolic 113–150; BP diastolic 77–87; PULSE 57–71; RESP 16–18; O2SAT 97–100
[2016-12-11] MEDS: Morphine PCA 1 mg/mL 30 mL Inj IV PRN (00:25)
[2016-12-11] MEDS: 0.9% Sodium Chloride 1,000 ML IV SCH ×3 (05:23→17:33)
[2016-12-11] MEDS: MethylprednisoLONE Sodium Succinate 40 mg/mL Inj IVPUSH SCH ×3 (05:23→21:40)
[2016-12-11] MEDS: metroNIDAZOLE Inj 500 MG in IV Premix 1 EACH IV SCH ×3 (05:24→17:32)
--- NOTE | 2016-12-11 06:02 | NUR ---
Pain/ANESTHESIOLOGIST ATTENDING Was able to manage pain well over night stated 04/25 but did sleep through night
[2016-12-11 08:34] LABS: BASOPHILS % (AUTO) 0.1 % (0-3); EOSINOPHILS % (AUTO) 0 % (0-5); MONOCYTES % (AUTO) 1.9 % (4-12); Mean Corpuscular Hemoglobin 30.4 pg (27.0-35.0); Mean Corpuscular Volume 90.3 fL (81-100); NEUTROPHILS % (AUTO) 93.8 % (40-74); Platelet Count 234 bil/L (150-400)
--- NOTE | 2016-12-11 09:33 | NUR ---
Pt Delayed medical technologist chemistry/assessment Pt stated she did not want her meds administered, or to be assessed, until after her shower this AM as she wanted to 'relax' afterward and did not want to wait for her IV meds to finish before taking her shower. Will administer/assess post pt shower per request.
[2016-12-11] MEDS: Famotidine Inj 20 MG in IV Premix 1 EACH IV SCH ×2 (10:28→20:05)
[2016-12-11] MEDS: levoFLOXacin Inj 500 MG in IV Premix 1 EACH IV SCH (11:14)
[2016-12-11] MEDS: Dextrose 5% 500 ML IV SCH (12:03)
--- NOTE | 2016-12-11 12:26 | PCM.PNMED ---
Subjective Date of Service Dec 11, 2016 Subjective Patient feels a bit more comfortable today. She does not she is hungry and would like to progress her diet. She does not carry products. She also talks to me about having a lot of stress in her life and anxiety and has been having some anxiety attacks while in the hospital 100 what we can do for her regarding these. She notes her abdominal pain is improving. She is currently on PROPERTY DISPOSAL MANAGER morphine pump she has had no nausea or vomiting. She has not had a bowel movement over the past day or so. Exam Vital Signs Vital Sign - Last Date Time Temp Pulse Resp B/P Pulse Ox O2 Delivery O2 Flow Rate FiO2 12/11/16 06:38 16 97 12/11/16 06:37 36.7 60 145/87 Room Air Intake and Output 12/10/16 12/10/16 12/11/16 Cumulative From/Thru 15:00 23:00 07:00 12/09/16 05:38 - 12/11/16 00:52 Intake Total 2421 ml 5626 ml Balance 2421 ml 5626 ml Intake Oral 245 ml 1425 ml IV Total 2176 ml 4201 ml # Voids 5 9 Exam Constitutional: Slightly anxious but not very tearful today relative to yesterday. She appears more comfortable with regards to pain control relative to yesterday. Head: Normocephalic atraumatic Chest: Clear to auscultation Cor: Regular rate and rhythm S1-S2 without murmur. Abdomen: Soft bowel sounds present there is mild tenderness left lower quadrant no rebound or guarding noted Extremities: No pedal edema Neuro: Alert and oriented 3, motor strength is intact bilaterally. Lab and Diagnostics Laboratory Tests 72 Hours Test 12/09/16 05:30 12/09/16 07:33 12/09/16 18:00 12/10/16 07:15 White Blood Count 23.4th/mm3 (3.8-10.1) 15.5th/mm3 (3.8-10.1) Red Blood Count 4.56mil/mm3 (3.90-5.20) 3.66mil/mm3 (3.90-5.20) Hemoglobin 14.1g/dL (12.0-15.6) 11.0g/dL (12.0-15.6) Hematocrit 43.0% (35.0-46.0) 34.8% (35.0-46.0) Mean Corpuscular Volume 94.3fL (81-100) 95.1fL (81-100) Mean Corpuscular Hemoglobin 30.9pg (27.0-35.0) 30.1pg (27.0-35.0) Mean Corpuscular Hemoglobin Concent 32.8% (32.0-37.0) 31.6% (32.0-37.0) Red Cell Distribution Width 13.8% (12.3-15.4) 13.9% (12.3-15.4) Platelet Count 260bil/L (150-400) 187bil/L (150-400) Neutrophils (%) (Auto) 86.2% (40-74) 75.9% (40-74) Lymphocytes (%) (Auto) 7.7% (14-46) 17.7% (14-46) Monocytes (%) (Auto) 4.5% (4-12) 4.9% (4-12) Eosinophils (%) (Auto) 1.2% (0-5) 1.2% (0-5) Basophils (%) (Auto) 0.1% (0-3) 0.1% (0-3) Hold Purple Top Tube Received (Received) Prothrombin Time 10.3sec (8.1-12.5) Prothromb Time International Ratio 0.96ratio Hold Blue Top Tube Received (Received) Sodium Level 139mEq/L (134-144) 134mEq/L (134-144) Potassium Level 4.5mEq/L (3.5-5.2) 3.9mEq/L (3.5-5.2) Chloride Level 100mEq/L (97-108) 98mEq/L (97-108) Carbon Dioxide Level 28mmol/L (18-29) 26mmol/L (18-29) Blood Urea Nitrogen 13mg/dL (6-20) 9mg/dL (6-20) Creatinine 0.96mg/dL (0.57-1.00) 0.81mg/dL (0.57-1.00) Estimat Glomerular Filtration Rate 104mL/min (>59) 127mL/min (>59) Glucose Level 98mg/dL (60-99) 102mg/dL (60-99) Calcium Level 9.3mg/dL (8.5-10.1) 8.3mg/dL (8.5-10.1) Magnesium Level 2.0mg/dL (1.6-2.6) Total Bilirubin 0.2mg/dL (0.0-1.2) 0.6mg/dL (0.0-1.2) Aspartate Amino Transf (AST/SGOT) 13U/L (0-50) 7U/L (0-50) Alanine Aminotransferase (ALT/SGPT) 9U/L (0-32) 6U/L (0-32) Alkaline Phosphatase 90U/L (25-150) 60U/L (25-150) Total Protein 7.9g/dL (6.4-8.4) 5.8g/dL (6.4-8.4) Albumin 4.6g/dL (3.4-5.0) 3.7g/dL (3.4-5.0) Lipase 21U/L (13-60) Hold [place] Top Tube Received (Received) Urine Color Straw (YELLOW) Urine Appearance Hazy (CLEAR,HAZY) Urine pH 5.5 (5.0-8.0) Urine Specific [place] 1.020 (1.003-1.035) Urine Protein Negativemg/dL (NEG,TRACE) Urine Glucose (UA) Negativemg/dL (NEGATIVE) Urine Ketones Negativemg/dL (NEGATIVE) Urine Occult Blood Negative (NEGATIVE) Urine Nitrite Negative (NEGATIVE) Urine Bilirubin Negative (NEGATIVE) Urine Urobilinogen Normalmg/dL (NORMAL) Urine Leukocyte Esterase Negative (NEGATIVE) Urine RBC 0-2/hpf (0-2) Urine WBC 0-5/hpf (0-5) Urine Epithelial Cells Occasional/hpf (NONE-MOD) Urine Crystals None seen (NONE SEEN) Urine Bacteria None/hpf (NONE-FEW) Urine Hyaline Casts None/lpf (NONE) Urine Granular Casts None seen (NONE SEEN) Urine Waxy Casts None seen (NONE SEEN) Urine Red Blood Cell Casts None seen (NONE SEEN) Urine White Blood Cell Casts None seen (NONE SEEN) Urine Mucus None seen (None Seen) Urine Trichomonas None seen (NONE SEEN) Urine Yeast None (NONE SEEN) Urinalysis Comment None Urine Culture Reflexed Not indicated Urine Opiates Screen Negative Urine Methadone Screen Negative Urine Barbiturates Screen Negative Urine Amphetamines Screen Positive Urine Benzodiazepines Screen Negative Urine Cocaine Metabolite Screen Negative Urine Cannabinoids Screen Positive Lactic Acid Level 0.7mmol/L (0.4-2.0) Test 12/10/16 17:15 12/11/16 08:24 Erythrocyte Sedimentation Rate 30mm/hr (0-32) Sodium Level 137mEq/L (134-144) 139mEq/L (134-144) Potassium Level 4.5mEq/L (3.5-5.2) 4.7mEq/L (3.5-5.2) Chloride Level 102mEq/L (97-108) 104mEq/L (97-108) Carbon Dioxide Level 24mmol/L (18-29) 25mmol/L (18-29) Blood Urea Nitrogen 8mg/dL (6-20) 4mg/dL (6-20) Creatinine 0.84mg/dL (0.57-1.00) 0.67mg/dL (0.57-1.00) Estimat Glomerular Filtration Rate 121mL/min (>59) 158mL/min (>59) Glucose Level 147mg/dL (60-99) 133mg/dL (60-99) Calcium Level 8.6mg/dL (8.5-10.1) 9.2mg/dL (8.5-10.1) Total Bilirubin 0.3mg/dL (0.0-1.2) 0.2mg/dL (0.0-1.2) Aspartate Amino Transf (AST/SGOT) 8U/L (0-50) 10U/L (0-50) Alanine Aminotransferase (ALT/SGPT) 7U/L (0-32) 8U/L (0-32) Alkaline Phosphatase 57U/L (25-150) 70U/L (25-150) C-Reactive Protein 15.9mg/dL (0.0-0.5) Total Protein 6.5g/dL (6.4-8.4) 6.5g/dL (6.4-8.4) Albumin 3.7g/dL (3.4-5.0) 3.8g/dL (3.4-5.0) White Blood Count 18.3th/mm3 (3.8-10.1) Red Blood Count 4.11mil/mm3 (3.90-5.20) Hemoglobin 12.5g/dL (12.0-15.6) Hematocrit 37.1% (35.0-46.0) Mean Corpuscular Volume 90.3fL (81-100) Mean Corpuscular Hemoglobin 30.4pg (27.0-35.0) Mean Corpuscular Hemoglobin Concent 33.7% (32.0-37.0) Red Cell Distribution Width 13.5% (12.3-15.4) Platelet Count 234bil/L (150-400) Neutrophils (%) (Auto) 93.8% (40-74) Lymphocytes (%) (Auto) 4.0% (14-46) Monocytes (%) (Auto) 1.9% (4-12) Eosinophils (%) (Auto) 0% (0-5) Basophils (%) (Auto) 0.1% (0-3) Result Diagram: 12/11/1682312/11/16823 Assessment & Plan # Acute abdominal pain, present on admission CAT scan reveals left lower quadrant colitis and was treated with IV Levaquin and IV Flagyl as recommended per infectious disease Ketorolac IV when necessary pain IV famotidine twice a day IV fluid hydration We will go ahead and check a sedimentation rate, CRP and due to her poor pain control will check urine drug screen to urine which was obtained from the ER and if this is not possible we will go ahead and check one now We will also cover for possibility of inflammatory bowel disease with IV Solu- Medrol 20 mg every 8 hours We will DC Dilaudid PROPERTY DISPOSAL MANAGER as patient requests and switch it to a morphine PROPERTY DISPOSAL MANAGER Today patient is doing better on switch to morphine. We will also add IM hydroxyzine when necessary. After review she has not used any of this over the past 24 hours. Clinically she is improving. Continue current management. Progress to soft diet # Leukocytosis, acute, present on admission Most likely secondary to acute colitis # Anxiety, subacute, present on admission We will proceed with instituting Celexa 10 mg by mouth at at bedtime daily Ativan by mouth when necessary anxiety Of note, patient's drug screen at ER is positive for cannabinoids and amphetamines. # DVT prophylaxis Placed on subcutaneous Lovenox # CODE STATUS Patient is full code GI Prophylaxis: H2 jim VTE Prophylaxis: Sub-Q Enoxaparin Time spent 30 minutes Yaa Gilbert MD Dec 11, 2016 12:26
[2016-12-11] MEDS: LORazepam 0.5 mg Tablet PO PRN (18:41)
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
[2016-12-11] MEDS: Ondansetron 2 mg/mL 2 mL Inj IVPUSH PRN (19:56)
[2016-12-11] MEDS: Ketorolac 15 mg/mL Inj IVPUSH PRN (20:04)
[2016-12-12] MEDS: metroNIDAZOLE Inj 500 MG in IV Premix 1 EACH IV SCH ×3 (00:23→11:48)
[2016-12-12 01:50] VITALS: BP 121/82; PULSE 64; RESP 17; O2SAT 97
[2016-12-12] MEDS: MethylprednisoLONE Sodium Succinate 40 mg/mL Inj IVPUSH SCH ×2 (05:45→13:30)
[2016-12-12 05:51] VITALS: BP 143/83; PULSE 65; RESP 18; O2SAT 96
[2016-12-12] MEDS: LORazepam 0.5 mg Tablet PO PRN (06:03)
[2016-12-12 06:51] LABS: BASOPHILS % (AUTO) 0.1 % (0-3); EOSINOPHILS % (AUTO) 0 % (0-5); MONOCYTES % (AUTO) 2.6 % (4-12); Mean Corpuscular Hemoglobin 30.2 pg (27.0-35.0); Mean Corpuscular Volume 93.4 fL (81-100); NEUTROPHILS % (AUTO) 91.2 % (40-74); Platelet Count 246 bil/L (150-400)
[2016-12-12] MEDS: Famotidine Inj 20 MG in IV Premix 1 EACH IV SCH (08:42)
[2016-12-12] MEDS: levoFLOXacin Inj 500 MG in IV Premix 1 EACH IV SCH (08:43)
--- NOTE | 2016-12-12 09:03 | NUR ---
Anxiety Pt given meds this am to include lovenox in R arm per pt request. Following admin pt states "they give me anxiety meds before needles". Anxiety medication given at 0600 this am by assistant shift supervisor , which was communicated to pt. Pt irritated and RN communicated that this would be passed along to further staff and anxiety medication is ordered TID prn.
[2016-12-12 10:17] VITALS: BP 138/80; PULSE 57; RESP 18; O2SAT 98
--- NOTE | 2016-12-12 11:41 | NUR ---
Rounds 1030 aware that pt able to eat about 50% of breakfast w/o n/v. notified that per pt, has not had Bm in 5 days but states she is not constipated. Bowel soft. flatus present. states pt does not need IV fluids. Doing well on po pain control.
--- NOTE | 2016-12-12 11:56 | PCM.DIMED ---
Discharge Instructions Date of Service Dec 12, 2016 Dates of Hospitalization Dec 09, 2016 at 13:10 Discharge Diagnosis Discharge Diagnosis left sided colitis Diet Other (low fiber,soft diet) Call your provider Fever or Chills, Shortness of breath, Bleeding, Chest pain, Vomitting, Excessive diarrhea, Weakness (unilateral) Patient Instructions Follow-up plan [facility] clinic in 5-7 days or sooner if problems. Yaa Gilbert MD Dec 12, 2016 11:56
[2016-12-12] MEDS ORDERED: METR500T19 PO (12:03)
[2016-12-12] MEDS ORDERED: LEVO500T79 PO (12:03)
[2016-12-12] MEDS ORDERED: OXYC5TAB72 PO (12:03)
[2016-12-12] MEDS ORDERED: PRE20 PO (12:03)
[2016-12-12] MEDS ORDERED: CITA10TA9 PO (12:09)
[2016-12-12] MEDS ORDERED: ALPR0.5T8 PO (12:12)
--- NOTE | 2016-12-12 13:17 | PCM.DC.MED ---
Discharge Summary Date of Service Dec 12, 2016 Dates of Hospitalization Date of Hospital Admission Dec 09, 2016 at 13:10 Date of Discharge: Dec 12, 2016 Providers: Admitting Physician: Nury Gilbert MD Primary Care Physician: Melvina Daly MD Attending Physician: Nury Gilbert MD Diagnosis at Time of Discharge Diagnosis at Time of Discharge left sided colitis,possible infectious vs inflammatory Brief History This is a 21-year-old female who presents to the emergency room via EMS with right sided abdominal pain onset yesterday evening about 7 PM. She denied any diarrhea or alteration in bowel movements. He denies any nausea or vomiting. She denies prior history of similar. She denies any fevers or chills. She notes the pain starts in the right upper area goes to the right lower and to the suprapubic area. She says her level of presentation to the emergency room of pain is 10 out of 10. There is no family history of inflammatory bowel disease. Her evaluation in the emergency room includes white count of 23.4 with 86% polys 8% lymphs abdominal ultrasound revealed normal gallbladder normal kidney appendix was not seen. UA was negative for infection urine test was negative. CT of abdomen is as follows: PROCEDURE: CT ABDOMEN AND PELVIS WITH CONTRAST ([id number]) INDICATIONS: leukocytosis, severe abdominal pain TECHNIQUE: After the administration of oral and intravenous contrast, 5 mm thick sections acquired from the diaphragms to the symphysis. 5 mm thick coronal and sagittal reformats were performed. For radiation dose reduction, the following was used : automated exposure control, adjustment of mA and/or kV according to patient size. COMPARISON: [facility], , [place] ABDOMEN, 12/09/2016, 7:25. FINDINGS: Image quality: Mild motion artifact is present. ABDOMEN: Lung bases: There is mild dependent atelectasis. Heart size is normal. Solid organs: Liver and spleen are normal in size and enhancement. Gallbladder appears within normal limits without calcified gallstones. Biliary system is non-dilated. Pancreas enhances normally. No adrenal nodules. Kidneys are normal in size and enhancement, without hydronephrosis. Peritoneum and bowel: Stomach and small bowel loops are normal in caliber and wall thickness. The appendix is normal in appearance. There is mild segmental wall thickening of the descending and rectosigmoid colon consistent with a nonspecific colitis. No free fluid or air. Nodes and vessels: No retroperitoneal or mesenteric adenopathy. Aorta and inferior vena cava are normal in caliber. Miscellaneous: No ventral hernias. PELVIS: Genitourinary: Bladder wall thickness is normal. Miscellaneous: No inguinal hernias or adenopathy. Bones: No suspicious bony lesions. No vertebral body compression fractures. IMPRESSION: 1. Segmental wall thickening of the descending and rectosigmoid colon consistent with a probable infectious or inflammatory colitis. Dictated by: Ke Hay M.D. on 12/09/2016 at 9:29 Approved by: Ke Hay M.D. on 12/09/2016 at 9:32 ER doctor consult with infectious disease Dr. Hermosillo and recommended initiating IV Levaquin and IV Flagyl. Hospital Course # Acute abdominal pain, present on admission CAT scan reveals left lower quadrant colitis and was treated with IV Levaquin and IV Flagyl as recommended per infectious disease Ketorolac IV when necessary pain IV famotidine twice a day IV fluid hydration Clinically she is improving. Continue current management. Progress to soft diet which she has tolerated well. She also was DC'd from her morphine COST RECORDER yesterday afternoon and tolerated by mouth oxycodone when necessary without problems. She will be discharged on oral Levaquin 500 milligrams daily 5 days and by mouth Flagyl 500 mg by mouth 3 times a day 5 days. Since is not clear whether this is an inflammatory bowel disease will also discharge her on prednisone 20 mg by mouth twice a day 7 days. She is to follow up with either her primary or she can be seen in the [facility] residency clinic if she is able trouble getting in. # Leukocytosis, acute, present on admission Most likely secondary to acute colitis and recent addition to steroid therapy. # Anxiety, subacute, present on admission We will proceed with instituting Celexa 10 mg by mouth at at bedtime daily Alprazolam by mouth when necessary anxiety Of note, patient's drug screen at ER is positive for cannabinoids and amphetamines. # DVT prophylaxis Placed on subcutaneous Lovenox # CODE STATUS Patient is full code Exam Vital Signs (Last) Date Time Temp Pulse Resp B/P Pulse Ox O2 Delivery O2 Flow Rate FiO2 12/12/16 10:17 57 18 138/80 98 Room Air 12/12/16 05:51 36.7 Exam Constitutional: Slightly tearful and anxious but calms down easily and is appropriate and cooperative Head: Normocephalic atraumatic Chest: Clear to auscultation Cor: Regular rate and rhythm S1-S2 Abdomen: Soft there is still some tenderness in the right mid area and left lower quadrant area no rebound no guarding. Extremities: No pedal edema Skin: No rashes Neuro: A+Ox3, motor intact Laboratory Tests 72 Hours Test 12/09/16 18:00 12/10/16 07:15 12/10/16 17:15 12/11/16 08:24 Sodium Level 134mEq/L (134-144) 137mEq/L (134-144) 139mEq/L (134-144) Potassium Level 3.9mEq/L (3.5-5.2) 4.5mEq/L (3.5-5.2) 4.7mEq/L (3.5-5.2) Chloride Level 98mEq/L (97-108) 102mEq/L (97-108) 104mEq/L (97-108) Carbon Dioxide Level 26mmol/L (18-29) 24mmol/L (18-29) 25mmol/L (18-29) Blood Urea Nitrogen 9mg/dL (6-20) 8mg/dL (6-20) 4mg/dL (6-20) Creatinine 0.81mg/dL (0.57-1.00) 0.84mg/dL (0.57-1.00) 0.67mg/dL (0.57-1.00) Estimat Glomerular Filtration Rate 127mL/min (>59) 121mL/min (>59) 158mL/min (>59) Glucose Level 102mg/dL (60-99) 147mg/dL (60-99) 133mg/dL (60-99) Lactic Acid Level 0.7mmol/L (0.4-2.0) Calcium Level 8.3mg/dL (8.5-10.1) 8.6mg/dL (8.5-10.1) 9.2mg/dL (8.5-10.1) Total Bilirubin 0.6mg/dL (0.0-1.2) 0.3mg/dL (0.0-1.2) 0.2mg/dL (0.0-1.2) Aspartate Amino Transf (AST/SGOT) 7U/L (0-50) 8U/L (0-50) 10U/L (0-50) Alanine Aminotransferase (ALT/SGPT) 6U/L (0-32) 7U/L (0-32) 8U/L (0-32) Alkaline Phosphatase 60U/L (25-150) 57U/L (25-150) 70U/L (25-150) Total Protein 5.8g/dL (6.4-8.4) 6.5g/dL (6.4-8.4) 6.5g/dL (6.4-8.4) Albumin 3.7g/dL (3.4-5.0) 3.7g/dL (3.4-5.0) 3.8g/dL (3.4-5.0) White Blood Count 15.5th/mm3 (3.8-10.1) 18.3th/mm3 (3.8-10.1) Red Blood Count 3.66mil/mm3 (3.90-5.20) 4.11mil/mm3 (3.90-5.20) Hemoglobin 11.0g/dL (12.0-15.6) 12.5g/dL (12.0-15.6) Hematocrit 34.8% (35.0-46.0) 37.1% (35.0-46.0) Mean Corpuscular Volume 95.1fL (81-100) 90.3fL (81-100) Mean Corpuscular Hemoglobin 30.1pg (27.0-35.0) 30.4pg (27.0-35.0) Mean Corpuscular Hemoglobin Concent 31.6% (32.0-37.0) 33.7% (32.0-37.0) Red Cell Distribution Width 13.9% (12.3-15.4) 13.5% (12.3-15.4) Platelet Count 187bil/L (150-400) 234bil/L (150-400) Neutrophils (%) (Auto) 75.9% (40-74) 93.8% (40-74) Lymphocytes (%) (Auto) 17.7% (14-46) 4.0% (14-46) Monocytes (%) (Auto) 4.9% (4-12) 1.9% (4-12) Eosinophils (%) (Auto) 1.2% (0-5) 0% (0-5) Basophils (%) (Auto) 0.1% (0-3) 0.1% (0-3) Erythrocyte Sedimentation Rate 30mm/hr (0-32) C-Reactive Protein 15.9mg/dL (0.0-0.5) Test 12/11/16 18:22 12/12/16 06:22 Sodium Level 137mEq/L (134-144) 138mEq/L (134-144) Potassium Level 4.2mEq/L (3.5-5.2) 4.9mEq/L (3.5-5.2) Chloride Level 100mEq/L (97-108) 100mEq/L (97-108) Carbon Dioxide Level 27mmol/L (18-29) 26mmol/L (18-29) Blood Urea Nitrogen 6mg/dL (6-20) 10mg/dL (6-20) Creatinine 0.75mg/dL (0.57-1.00) 0.79mg/dL (0.57-1.00) Estimat Glomerular Filtration Rate 138mL/min (>59) 130mL/min (>59) Glucose Level 129mg/dL (60-99) 119mg/dL (60-99) Calcium Level 8.9mg/dL (8.5-10.1) 8.8mg/dL (8.5-10.1) Total Bilirubin 0.2mg/dL (0.0-1.2) 0.2mg/dL (0.0-1.2) Aspartate Amino Transf (AST/SGOT) 12U/L (0-50) 10U/L (0-50) Alanine Aminotransferase (ALT/SGPT) 9U/L (0-32) 7U/L (0-32) Alkaline Phosphatase 68U/L (25-150) 66U/L (25-150) Total Protein 7.1g/dL (6.4-8.4) 6.0g/dL (6.4-8.4) Albumin 4.0g/dL (3.4-5.0) 3.5g/dL (3.4-5.0) White Blood Count 17.9th/mm3 (3.8-10.1) Red Blood Count 3.94mil/mm3 (3.90-5.20) Hemoglobin 11.9g/dL (12.0-15.6) Hematocrit 36.8% (35.0-46.0) Mean Corpuscular Volume 93.4fL (81-100) Mean Corpuscular Hemoglobin 30.2pg (27.0-35.0) Mean Corpuscular Hemoglobin Concent 32.3% (32.0-37.0) Red Cell Distribution Width 13.3% (12.3-15.4) Platelet Count 246bil/L (150-400) Neutrophils (%) (Auto) 91.2% (40-74) Lymphocytes (%) (Auto) 5.9% (14-46) Monocytes (%) (Auto) 2.6% (4-12) Eosinophils (%) (Auto) 0% (0-5) Basophils (%) (Auto) 0.1% (0-3) Test 12/09/16 05:30 12/09/16 07:33 12/09/16 18:00 12/10/16 17:15 Hold Purple Top Tube Received (Received) Prothrombin Time 10.3sec (8.1-12.5) Prothromb Time International Ratio 0.96ratio Hold Blue Top Tube Received (Received) Magnesium Level 2.0mg/dL (1.6-2.6) Lipase 21U/L (13-60) Hold Wright Top Tube Received (Received) Urine Color Straw (YELLOW) Urine Appearance Hazy (CLEAR,HAZY) Urine pH 5.5 (5.0-8.0) Urine Specific [place] 1.020 (1.003-1.035) Urine Protein Negativemg/dL (NEG,TRACE) Urine Glucose (UA) Negativemg/dL (NEGATIVE) Urine Ketones Negativemg/dL (NEGATIVE) Urine Occult Blood Negative (NEGATIVE) Urine Nitrite Negative (NEGATIVE) Urine Bilirubin Negative (NEGATIVE) Urine Urobilinogen Normalmg/dL (NORMAL) Urine Leukocyte Esterase Negative (NEGATIVE) Urine RBC 0-2/hpf (0-2) Urine WBC 0-5/hpf (0-5) Urine Epithelial Cells Occasional/hpf (NONE-MOD) Urine Crystals None seen (NONE SEEN) Urine Bacteria None/hpf (NONE-FEW) Urine Hyaline Casts None/lpf (NONE) Urine Granular Casts None seen (NONE SEEN) Urine Waxy Casts None seen (NONE SEEN) Urine Red Blood Cell Casts None seen (NONE SEEN) Urine White Blood Cell Casts None seen (NONE SEEN) Urine Mucus None seen (None Seen) Urine Trichomonas None seen (NONE SEEN) Urine Yeast None (NONE SEEN) Urinalysis Comment None Urine Culture Reflexed Not indicated Urine Opiates Screen Negative Urine Methadone Screen Negative Urine Barbiturates Screen Negative Urine Amphetamines Screen Positive Urine Benzodiazepines Screen Negative Urine Cocaine Metabolite Screen Negative Urine Cannabinoids Screen Positive Lactic Acid Level 0.7mmol/L (0.4-2.0) Erythrocyte Sedimentation Rate 30mm/hr (0-32) C-Reactive Protein 15.9mg/dL (0.0-0.5) Test 12/12/16 06:22 White Blood Count 17.9th/mm3 (3.8-10.1) Red Blood Count 3.94mil/mm3 (3.90-5.20) Hemoglobin 11.9g/dL (12.0-15.6) Hematocrit 36.8% (35.0-46.0) Mean Corpuscular Volume 93.4fL (81-100) Mean Corpuscular Hemoglobin 30.2pg (27.0-35.0) Mean Corpuscular Hemoglobin Concent 32.3% (32.0-37.0) Red Cell Distribution Width 13.3% (12.3-15.4) Platelet Count 246bil/L (150-400) Neutrophils (%) (Auto) 91.2% (40-74) Lymphocytes (%) (Auto) 5.9% (14-46) Monocytes (%) (Auto) 2.6% (4-12) Eosinophils (%) (Auto) 0% (0-5) Basophils (%) (Auto) 0.1% (0-3) Sodium Level 138mEq/L (134-144) Potassium Level 4.9mEq/L (3.5-5.2) Chloride Level 100mEq/L (97-108) Carbon Dioxide Level 26mmol/L (18-29) Blood Urea Nitrogen 10mg/dL (6-20) Creatinine 0.79mg/dL (0.57-1.00) Estimat Glomerular Filtration Rate 130mL/min (>59) Glucose Level 119mg/dL (60-99) Calcium Level 8.8mg/dL (8.5-10.1) Total Bilirubin 0.2mg/dL (0.0-1.2) Aspartate Amino Transf (AST/SGOT) 10U/L (0-50) Alanine Aminotransferase (ALT/SGPT) 7U/L (0-32) Alkaline Phosphatase 66U/L (25-150) Total Protein 6.0g/dL (6.4-8.4) Albumin 3.5g/dL (3.4-5.0) Discharge Medications Discharge Medications Citalopram (Citalopram) 10 Mg Tablet 10 MG PO DAILY Prescribed by: NURY GILBERT MD Levofloxacin (Levofloxacin) 500 Mg Tablet 500 MG PO DAILY Prescribed by: NURY GILBERT MD Metronidazole (Metronidazole) 500 Mg Tablet 500 MG PO TID Prescribed by: NURY GILBERT MD Prednisone (PredniSONE) 20 Mg Tablet 20 MG PO BIDWM Prescribed by: NURY GILBERT MD As needed Alprazolam (Alprazolam) 0.5 Mg Tablet 0.5 MG PO TID PRN PRN For Anxiety Prescribed by: NURY GILBERT MD Ibuprofen (Ibuprofen) 200 Mg Capsule 800 MG PO BID PRN PRN dysmenorrhea or swelling (Reported) oxyCODONE (oxyCODONE) 5 Mg Tablet 5 MG PO Q4H PRN PRN For Moderate Pain Prescribed by: NURY GILBERT MD Followup Plan Follow-up plan [facility] clinic in 5-7 days or sooner if problems. Discharge Diet: Other (low fiber,soft diet) Time spent 60 minutes Nury Gilbert MD Dec 12, 2016 13:17
[2016-12-12] MEDS ORDERED: predniSONE 20 mg Tablet PO ONE (14:15)
--- NOTE | 2016-12-12 14:15 | NUR ---
Social Work-discharge: Data:EMR Reviewed. Pt is on day 3 of hospitalization for abdominal per H&P. Pt is medically stable for discharge today. Pt has been up independent in her room. No discharge needs identified. All updated and agreeable to plan. Assessment:Pt who is independent at baseline. Plan:Pt to discharge home today via POV. No discharge needs identified. All updated and agreeable to plan. ROCK Kendall
--- NOTE | 2016-12-12 14:59 | NUR ---
discharge pt dc'd ambulatory with mom and GLOBAL CHIEF CREATIVE OFFICER at 1459. All discharge instructions and new medications reviewed. Pt and mom verbalized understanding. All belongings with pt. IV dc'd w/o complication.
== END 2016-12-12 14:58 | disposition home or self-care (01) | DRG 249 ==
LOC: SED 05:31 → EDBD 05:31 → MOC 13:10
PROVIDERS: ADMIT Specialist; ATTEND Specialist
DX: A09 Infectious gastroenteritis and colitis, unspecified (principal); F41.9 Anxiety disorder, unspecified; F17.210 Nicotine dependence, cigarettes, uncomplicated; R10.9 Unspecified abdominal pain

== ENCOUNTER 2016-12-24 13:06 | Emergency (ER) | payer OTHER ==
[~2016-12-24] VITALS: Ht 165.1 cm; Wt 75.0 kg
[~2016-12-24 13:06] MED LIST changes: +ALPR0.5T8 PO; +CITA10TA9 PO; +IBUP200C PO; +LEVO500T79 PO; +METR500T19 PO; -ONDA8TAB10 PO; +OXYC5TAB72 PO; +PRE20 PO
[2016-12-24 13:13] VITALS: BP 125/84; PULSE 97; RESP 16; O2SAT 100
[2016-12-24 13:51] LABS: BASOPHILS % (AUTO) 0.9 % (0-3); EOSINOPHILS % (AUTO) 1.1 % (0-5); Mean Corpuscular Hemoglobin 29.7 pg (27.0-35.0); Mean Corpuscular Volume 90.8 fL (81-100); NEUTROPHILS % (AUTO) 75.3 % (40-74); Platelet Count 258 bil/L (150-400)
--- NOTE | 2016-12-24 16:37 | ED.REPORT ---
HPI-Abd Pain F Under 39 Date of Service Dec 24, 2016 ED Provider: Migue Lopez MD The patient is a 21 year old female with history of colitis, who presents to the emergency department complaining of "sharp" diffuse abdominal pain that began yesterday after eating a burrito. Her pain has continued today and she has also experienced nausea, diarrhea, and vomiting. Her pain is intermittent. She was recently admitted for similar symptoms from 12/09-12/12 and was diagnosed with colitis. She was discharged home on citalopram, levofloxacin, metronidazole , prednisone, alprazolam, and oxycodone. She ran out of the medications 3-4 days ago. She was also directed to followup at the residency clinic. She denies fever, chills, cough, shortness of breath, chest pain, dysuria or hematuria. She denies any chance of being . Nursing Notes Stated Complaint: ABDOMINAL PAIN Chief Complaint: Female Abdominal Pain Nursing Notes Reviewed: Yes Allergies: Coded Allergies: No Known Allergies (Verified Allergy, Unknown, 12/24/16) Scheduled Citalopram (Citalopram) 10 Mg Tablet 10 MG PO DAILY Dicyclomine (Bentyl) 10 Mg Capsule 20 MG PO QID Scheduled PRN Alprazolam (Alprazolam) 0.5 Mg Tablet 0.5 MG PO TID PRN PRN For Anxiety Ondansetron ODT (Zofran ODT) 4 Mg Tablet 4 MG PO Q4H PRN PRN For Nausea General Time Seen by MD: 16:36 Chief Complaint Abdominal pain Hx Obtained From: Patient Arrived By: Walk-in Sudden in Onset?: Yes Onset Occurred: Yesterday Context of Onset: Eating Symptom Duration: Since onset Progression since Onset: Constant, Gradually worsening Location: : Diffuse Quality: Painful Radiation: : Does not radiate Severity: Current: Severe Severity: Maximum: Severe Recent Healthcare: Recent doctor visit, Recent hospitalization Similar Sx Previous: Yes Past Medical History Past Medical History Chlamydia in 2010 Colitis Reports: Asthma Past Surgical History None reported Smoking History Current Every Day Smoker Social History Drug Use: THC Other Social History: Local resident Ambulatory Status Independent Review of Systems Constitutional: Denies: Chills, Fever Respiratory: Denies: Non-productive cough, Shortness of breath Cardiovascular: Denies: Chest pain GI: Reports: Abdominal pain, Diarrhea, Nausea, Vomiting Female: Denies: Dysuria, Hematuria, Complete sys rev & neg: except as marked. Physical Exam Initial Vital Signs Vital Signs (First) Date Time Temp Pulse Resp B/P Pulse Ox O2 Delivery O2 Flow Rate FiO2 12/24/16 13:13 36.4 97 16 125/84 100 Room Air Initial VS: Reviewed Head / Eyes: Atraumatic, Normocephalic, PERRL ENT: Mucous membranes moist, Conjunctiva normal, No scleral icterus Neck: Supple, Non-tender, Full range of motion Lymphatic: No lymphadenopathy Extremities: Vascular intact, Neuro intact, No swelling, No tenderness Skin: Warm, Dry, No cyanosis Neurologic: Alert, Oriented, Nonfocal Psychiatric: Mood/affect normal, Behavior normal, Normal thought content General/Constitutional: Awake, Alert, Cooperative Appearance / Presentation: Positive: Uncomfortable Respiratory / Chest: Atraumatic, Breath sounds NL, Breath sounds = bilat, No respiratory distress, No rales, No rhonchi, No wheezing Cardiovascular: Heart rate NL, Regular rhythm, Heart sounds NL, No gallop, No murmurs, No rubs, Peripheral circulation NL Abdomen: Soft, No guarding, No rebound, BS normoactive, No distention, No hernia, No palpable mass, No pulsatile mass Diffuse abdominal tenderness throughout her entire abdomen, no focal tenderness. Back: Inspection NL, Non-tender, No CVA tenderness Interpretation & Diagnostics Lab Results Interpretation Result Diagram: 12/24/16 1335 12/24/16 1335 Test 12/24/16 13:35 White Blood Count 12.1th/mm3 (3.8-10.1) Red Blood Count 4.91mil/mm3 (3.90-5.20) Hemoglobin 14.6g/dL (12.0-15.6) Hematocrit 44.6% (35.0-46.0) Mean Corpuscular Volume 90.8fL (81-100) Mean Corpuscular Hemoglobin 29.7pg (27.0-35.0) Mean Corpuscular Hemoglobin Concent 32.7% (32.0-37.0) Red Cell Distribution Width 13.8% (12.3-15.4) Platelet Count 258bil/L (150-400) Neutrophils (%) (Auto) 75.3% (40-74) Lymphocytes (%) (Auto) 17.5% (14-46) Monocytes (%) (Auto) 5.0% (4-12) Eosinophils (%) (Auto) 1.1% (0-5) Basophils (%) (Auto) 0.9% (0-3) Sodium Level 137mEq/L (134-144) Potassium Level 4.4mEq/L (3.5-5.2) Chloride Level 100mEq/L (97-108) Carbon Dioxide Level 25mmol/L (18-29) Blood Urea Nitrogen 8mg/dL (6-20) Creatinine 0.72mg/dL (0.57-1.00) Estimat Glomerular Filtration Rate 145mL/min (>59) Glucose Level 111mg/dL (60-99) Calcium Level 9.6mg/dL (8.5-10.1) Magnesium Level 2.0mg/dL (1.6-2.6) Total Bilirubin 0.3mg/dL (0.0-1.2) Aspartate Amino Transf (AST/SGOT) 15U/L (0-50) Alanine Aminotransferase (ALT/SGPT) 11U/L (0-32) Alkaline Phosphatase 66U/L (25-150) Total Protein 7.4g/dL (6.4-8.4) Albumin 4.3g/dL (3.4-5.0) Lipase 17U/L (13-60) Re-Eval/Medical Decision Med Decision/Clinical Course The patient is a 21 year old female with history of colitis, who presents to the emergency department complaining of "sharp" diffuse abdominal pain that began yesterday after eating a burrito. Her pain has continued today and she has also experienced nausea, diarrhea, and vomiting. Her pain is intermittent. She was recently admitted for similar symptoms from 12/09-12/12 and was diagnosed with colitis. She was discharged home on citalopram, levofloxacin, metronidazole , prednisone, alprazolam, and oxycodone. She ran out of the medications 3-4 days ago. She was also directed to followup at the residency clinic. She denies fever, chills, cough, shortness of breath, chest pain, dysuria or hematuria. She denies any chance of being . Chart review conducted as below: She was admitted from December 09- with similar presentation of abdominal pain and irregular bowel movements. CT scan of abdomen and pelvis was done during this hospital stay which demonstrated segmental wall thickening of the descending and rectosigmoid colon consistent with a probable infectious or inflammatory colitis. She was treated with Flagyl and Levaquin which was recommended by infectious disease. She was clinically improving. It was unclear whether this was inflammatory or infectious therefore she was discharged on Prednisone in addition to Flagyl and Levaquin. It sounds like she was supposed to followup with the residency clinic however she has not done this and is back again today with a similar presentation. Labs today show a leukocytosis of 12.1 which is down from prior, CBC otherwise unremarkable, CMP unremarkable. negative. No signs of UTI. Treated with Zofran and Dilaudid. Abdominal examination relatively benign. Patient reported complete symptom resolution. She denies any bright red blood per rectum. Serial abdominal examinations remain reassuring. I see no evidence suggestive of acute surgical intra-abdominal process, ischemic colitis or infectious colitis for that matter. She denies any history of inflammatory bowel disease but this does remain a possibility. Spoke with Dr. Moody. He does not recommend any empiric treatment based upon her story today and recent CT scan. He is okay with Bentyl and followup in his clinic to consider getting scoped. At this time I feel the patient is appropriate for discharge home. She will take Bentyl as needed and arrange for follow-up with gastroenterology, consideration for endoscopy to further characterize presumed colitis. Follow- up and return precautions were reviewed in detail and she was discharged in good condition. Source of Hx: Old records Re-Evaluation/Progress : Time of Eval: 18:57 Re-Evaluation/Progress Note: Rechecked the patient. Discussed plan for discharge. Consultation : Referral / Consult Name: Nishant Moody MD Consulted With: Hospitalist Call Returned at: 18:43 International Marketing Intern: Will see in office, Agrees with eval, Agrees with plan Counseled Regarding: Diagnosis, Lab results, Need for follow-up, When/why to return to ED Discharge & Departure Primary Impression: Colitis Additional Impression: Abdominal pain Abdominal location: generalized Qualified Code: R10.84 - Generalized abdominal pain Disposition: Home Discharge Condition All VS Reviewed: Yes Condition: Stable Patient Instructions: Acute Abdominal Pain (ED) Additional Instructions: Thank you for seeking care at the emergency room. It is difficult for us to make definitive diagnoses in the ED but we believe that you are experiencing abdominal pain due to the colitis. Our primary goal today in the ED was to evaluate you for any life-threatening conditions. Your evaluation was reassuring. You will be discharged with a prescription for Bentyl and Zofran. You should follow-up with the [facility] residency clinic as well as a tester/lift trucker. We have given you a referral to Dr. Moody. Call on Tuesday to make appointments. You should return to the ED immediately if you develop increased pain, fevers, uncontrollable vomiting, or any other concerning signs or symptoms. Thank you for letting us partake in your care today. Referrals: Melvina Daly MD (PCP) Nishant Moody MD Attestation Portions of this note were transcribed by Aparna Feng. I, Dr. Lopez personally performed the history, physical exam and medical decision-making; I reviewed and confirmed the accuracy of the information in the transcribed note. Signed by: Julia Marroquin, 12/24/2016 and 1900. copies to: Nishant Moody MD; Melvina Daly MD, Beck O MD Dec 24, 2016 16:37 Jung,Aparna Rendon Dec 24, 2016 16:57
[2016-12-24] MEDS ORDERED: 0.9% Sodium Chloride 1,000 ML IV ONE (18:21)
[2016-12-24] MEDS ORDERED: Ondansetron 2 mg/mL 2 mL Inj IVPUSH ONE (18:25)
[2016-12-24] MEDS ORDERED: DICY10CA56 PO (18:43)
[2016-12-24] MEDS ORDERED: ONDA4TAB9 PO (19:00)
[2016-12-24] MEDS: HYDROmorphone 0.5 mg/0.5 mL iSecure Syringe IVPUSH PRN ×2 (19:03→19:04)
[2016-12-24 20:33] VITALS: BP 142/91; PULSE 78; RESP 18; O2SAT 97
== END 2016-12-24 20:34 | disposition home or self-care (01) ==
LOC: SED 13:06
DX: K52.9 Noninfective gastroenteritis and colitis, unspecified (principal); J45.909 Unspecified asthma, uncomplicated; F17.200 Nicotine dependence, unspecified, uncomplicated
CPT/HCPCS: 36415; 80053; 83690; 83735; 85025; 96361; 96374; 96375; 99284; J1170; J2405; J7030

== ENCOUNTER 2017-03-13 04:17 | Emergency (ER) | payer OTHER ==
[~2017-03-13] VITALS: Ht 167.6 cm; Wt 81.8 kg
[~2017-03-13 04:17] MED LIST changes: +DICY10CA56 PO; -IBUP200C PO; -LEVO500T79 PO; -METR500T19 PO; +ONDA4TAB9 PO; -OXYC5TAB72 PO; -PRE20 PO
[2017-03-13 04:23] VITALS: BP 136/81; PULSE 86; RESP 22; O2SAT 100
--- NOTE | 2017-03-13 04:25 | ED.REPORT ---
HPI-Abd Pain F Under 40 Date of Service March 13, 2017 ED Provider: Lorne Ibanez MD Pt is a 21 year old female with a hx of asthma presenting to the ED complaining of abdominal pain and difficulty breathing onset half an hour ago. Pt reports that she thinks the symptoms may have begun due to drinking EtOH. She denies other symptoms at this time. Nursing Notes Stated Complaint: ABDOMINAL PAIN Chief Complaint: Female Abdominal Pain Nursing Notes Reviewed: Yes Allergies: Coded Allergies: No Known Allergies (Verified Allergy, Unknown, 03/13/17) Scheduled Citalopram (Citalopram) 10 Mg Tablet 10 MG PO DAILY Dicyclomine (Bentyl) 10 Mg Capsule 20 MG PO QID Scheduled PRN Alprazolam (Alprazolam) 0.5 Mg Tablet 0.5 MG PO TID PRN PRN For Anxiety Ondansetron ODT (Zofran ODT) 4 Mg Tablet 4 MG PO Q4H PRN PRN For Nausea General Time Seen by MD: 04:23 Chief Complaint Other (Trouble Breathing) Hx Obtained From: Patient Arrived By: Ambulance, Walk-in Sudden in Onset?: Yes Onset Occurred: 31 - 45 minutes ago Symptom Duration: Since onset Progression since Onset: Constant Location: : Diffuse Quality: Painful Severity: Current: Moderate Severity: Maximum: Moderate Recent Healthcare: No recent doctor visit, No recent hospitalization Similar Sx Previous: No Past Medical History Past Medical History Chlamydia in 2010 Colitis Reports: Asthma Past Surgical History None reported Smoking History Current Every Day Smoker Social History Drug Use: THC Other Social History: Local resident Ambulatory Status Independent Review of Systems Respiratory: Reports: Shortness of breath, Wheezing GI: Reports: Abdominal pain, Denies: Vomiting Complete sys rev & neg: except as marked. Physical Exam Initial Vital Signs Vital Signs (First) Date Time Temp Pulse Resp B/P Pulse Ox O2 Delivery O2 Flow Rate FiO2 03/13/17 04:23 37.2 86 22 136/81 100 03/13/17 04:51 Room Air Initial VS: Reviewed, Vital signs normal Head / Eyes: Atraumatic, Normocephalic, PERRL ENT: Mucous membranes moist, Conjunctiva normal, No scleral icterus Extremities: Vascular intact, Neuro intact, No swelling, No tenderness Skin: Warm, Dry, No cyanosis Neurologic: Alert, Oriented, Nonfocal Psychiatric: Mood/affect normal, Behavior normal, Normal thought content General/Constitutional: Awake, Alert Respiratory / Chest: Atraumatic Excretory wheezes in all srinivasan. No focal changes in breath sounds Cardiovascular: Heart rate NL, Regular rhythm, Heart sounds NL, Peripheral circulation NL Abdomen: Soft Tenderness/Guarding/Rebound: Positive: Tender diffuse Interpretation & Diagnostics Lab Results Interpretation Result Diagram: 03/13/170 03/13/17 0420 Test 03/13/17 04:20 White Blood Count 12.7th/mm3 (3.8-10.1) Red Blood Count 4.86mil/mm3 (3.90-5.20) Hemoglobin 14.3g/dL (12.0-15.6) Hematocrit 43.1% (35.0-46.0) Mean Corpuscular Volume 88.7fL (81-100) Mean Corpuscular Hemoglobin 29.4pg (27.0-35.0) Mean Corpuscular Hemoglobin Concent 33.2% (32.0-37.0) Red Cell Distribution Width 14.4% (12.3-15.4) Platelet Count 250bil/L (150-400) Neutrophils (%) (Auto) 85.2% (40-74) Lymphocytes (%) (Auto) 6.9% (14-46) Monocytes (%) (Auto) 7.3% (4-12) Eosinophils (%) (Auto) 0.2% (0-5) Basophils (%) (Auto) 0.2% (0-3) Sodium Level 137mEq/L (134-144) Potassium Level 4.2mEq/L (3.5-5.2) Chloride Level 99mEq/L (97-108) Carbon Dioxide Level 21mmol/L (18-29) Blood Urea Nitrogen 6mg/dL (6-20) Creatinine 0.87mg/dL (0.57-1.00) Estimat Glomerular Filtration Rate 117mL/min (>59) Glucose Level 103mg/dL (60-99) Calcium Level 9.5mg/dL (8.5-10.1) Magnesium Level 1.8mg/dL (1.6-2.6) Total Bilirubin 0.3mg/dL (0.0-1.2) Aspartate Amino Transf (AST/SGOT) 18U/L (0-50) Alanine Aminotransferase (ALT/SGPT) 12U/L (0-32) Alkaline Phosphatase 79U/L (25-150) Total Protein 7.8g/dL (6.4-8.4) Albumin 4.5g/dL (3.4-5.0) Lipase 20U/L (13-60) Lab Results Interpretation: Mildly elevated white blood count Re-Eval/Medical Decision Med Decision/Clinical Course 21-year-old female who presents with nausea and vomiting, and complains of a exacerbation of her irritable bowel caused by alcohol. Her alcohol level was 0.060. She was given medicine for pain and nausea. She did not improve and so laboratory and CT workup was initiated. She also had some expiratory wheezing which responded to nebulizer treatments. Her care is now being turned over at change of shift to Dr. Lopez. Re-Evaluation/Progress : Time of Eval: 05:42 Patient Status: Condition improved Re-Evaluation/Progress Note: Discussed plan for CT scan and labs. Counseled Regarding: Diagnosis, Lab results, Need for follow-up, When/why to return to ED Discharge & Departure Disposition: Home Discharge Condition All VS Reviewed: Yes Condition: Improved Referrals: Melvina Daly MD (PCP) Care Transferred to: Dr. Lopez Care Transferred at: 06:00 Scribe Attestation Portions of this note were transcribed by Erica Salguero. I, Dr. Ibanez personally performed the history, physical exam and medical decision-making; I reviewed and confirmed the accuracy of the information in the transcribed note. Signed by: Julia Ayon, 03/13/2017 at 0600. copies to: Melvina Daly MD, Howard L MD March 13, 2017 04:25 ERICA SALGUERO March 13, 2017 04:35
[2017-03-13] MEDS ORDERED: Albuterol 2.5 mg/3 mL Inhalation Solution NEB ONE (04:35)
[2017-03-13] MEDS ORDERED: Albuterol-Ipratropium 3 mL Inhalation Solution NEB ONE (04:35)
[2017-03-13] MEDS ORDERED: HYDROmorphone 0.5 mg/0.5 mL iSecure Syringe IVPUSH PRN (04:40)
[2017-03-13 04:51] VITALS: PULSE 90; RESP 21; O2SAT 100
[2017-03-13] MEDS ORDERED: 0.9% Sodium Chloride 1,000 ML IV ONE ×2 (05:00→05:43)
[2017-03-13] MEDS ORDERED: Pantoprazole 4 mg/mL 10 mL Inj IVPUSH ONE (05:45)
[2017-03-13 05:57] LABS: BASOPHILS % (AUTO) 0.2 % (0-3); EOSINOPHILS % (AUTO) 0.2 % (0-5); MONOCYTES % (AUTO) 7.3 % (4-12); Mean Corpuscular Hemoglobin 29.4 pg (27.0-35.0); Mean Corpuscular Volume 88.7 fL (81-100); NEUTROPHILS % (AUTO) 85.2 % (40-74); Platelet Count 250 bil/L (150-400)
[2017-03-13 06:03] LABS: Magnesium 1.8 mg/dL (1.6-2.6)
--- NOTE | 2017-03-13 07:36 | DRSVH ---
PROCEDURE: CT ABDOMEN AND PELVIS WITH CONTRAST ([id number]) INDICATIONS: abdominal pain TECHNIQUE: After the administration of intravenous contrast, 5 mm thick sections acquired from the diaphragm to the symphysis. 5 mm coronal and sagittal reformats were acquired. For radiation dose reduction, the following was used: automated exposure control, adjustment of mA and/or kV according to patient gordo santana. COMPARISON: [facility], CT, CT ABD PELVIS W CON, 12/09/2016, 8:35. FINDINGS: Image quality: Excellent. ABDOMEN: Lung bases: Lung bases are clear. Heart size is normal. Solid organs: Liver and spleen are normal in size and enhancement. Gallbladder is present. Biliary system is non dilated. Pancreas enhances normally. No adrenal nodules. Kidneys demonstrate normal size and enhancement, without hydronephrosis. Peritoneum and bowel: Bowel loops demonstrate normal wall thickness and caliber. No free fluid or a ir. A normal appendix is likely identified (se 2 im 55). There are no secondary signs of acute appen dicitis. Nodes and vessels: No retroperitoneal or mesenteric adenopathy by size criteria. Aorta and inferior vena cava are normal in size. Miscellaneous: No ventral hernias. PELVIS: Genitourinary: Bladder wall thickness is normal. Miscellaneous: No inguinal hernias or adenopathy. Bones: No suspicious bony lesions. No vertebral body compression fractures. IMPRESSION: No CT evidence of acute abdominal or pelvic pathology. Dictated by: Cm Weaver M.D. on 03/13/2017 at 7:29 Approved by: Cm Weaver M.D. on 03/13/2017 at 7:34
[2017-03-13 08:14] VITALS: BP 134/90; PULSE 84; O2SAT 99
[2017-03-13 09:00] VITALS: BP 124/67; PULSE 94; RESP 18; O2SAT 99
[2017-03-13] MEDS ORDERED: HYDROcodone-APAP 5-325 mg Tablet PO ONE (09:00)
--- NOTE | 2017-03-13 09:02 | DRSVH ---
PROCEDURE: X-RAY CHEST ONE VIEW ([id number]) INDICATIONS: fever, r/o pna TECHNIQUE: One view of the chest was acquired. COMPARISON: None. FINDINGS: Surgical changes and devices: None. Lungs and pleura: No pleural effusions or pneumothorax. Lungs are clear. Mediastinum: Mediastinal contours appear normal. Heart size is normal. Bones and chest wall: No suspicious bony lesions. Overlying soft tissues appear unremarkable. IMPRESSION: Negative chest. Dictated by: Cm Weaver M.D. on 03/13/2017 at 8:58 Approved by: Cm Weaver M.D. on 03/13/2017 at 9:01
[2017-03-13 09:54] LABS: APPEARANCE,URINE HAZY (CLEAR,HAZY); COLOR,URINE YELLOW (YELLOW); OCCULT BLOOD,URINE NEGATIVE (NEGATIVE); UROBILINOGEN,URINE NORMAL (NORMAL)
[2017-03-13] MEDS ORDERED: cefTRIAXone Inj 2,000 MG in Dextrose 5% Minibag Plus 50 ML IV ONE (10:15)
[2017-03-13] MEDS ORDERED: SULF1TAB7 PO (11:15)
[2017-03-13 11:35] VITALS: BP 126/81; PULSE 72; RESP 16; O2SAT 99
== END 2017-03-13 11:36 | disposition home or self-care (01) ==
LOC: SED 04:23
DX: N39.0 Urinary tract infection, site not specified (principal); D72.829 Elevated white blood cell count, unspecified; B96.20 Unspecified Escherichia coli [E. coli] as the cause of diseases classified elsewhere; J45.909 Unspecified asthma, uncomplicated; F17.200 Nicotine dependence, unspecified, uncomplicated; F12.10 Cannabis abuse, uncomplicated; Z86.19 Personal history of other infectious and parasitic diseases
CPT/HCPCS: 36415; 71010; 74177; 80053; 81002; 82075; 83690; 83735; 84703; 85025; 87086; 87088; 87186; 96361; 96365; 96375; 99285; J0696; J1170; J7030; J7613; J7620; Q9967

== ENCOUNTER 2017-06-13 08:54 | Emergency (ER) | payer OTHER ==
[~2017-06-13] VITALS: Ht 157.5 cm; Wt 89.5 kg
[~2017-06-13 08:54] MED LIST changes: +SULF1TAB7 PO
[2017-06-13 09:08] VITALS: BP 152/90; PULSE 57; RESP 18; O2SAT 100
[2017-06-13] MEDS ORDERED: 0.9% Sodium Chloride 1,000 ML IV ONE ×2 (09:34→09:35)
[2017-06-13] MEDS ORDERED: Haloperidol 5 mg/mL Inj IVPUSH ONE (09:35)
--- NOTE | 2017-06-13 09:40 | ED.REPORT ---
HPI-Abd Pain F Under 40 Date of Service Jun 13, 2017 ED Provider: Jude Smith DO This is a 21-year-old female with history of anxiety and depression who presents to the emergency department for abdominal pain. Pain was sudden onset while watching a movie and gradually has worsened since and radiates to the back with a severity of 10 out of 10. She has been nauseated, vomiting, having diarrhea since then. She denies any blood in her vomit or stool. She has associated chills, weakness, sore muscles. She denies fevers, cough, sore throat, shortness of breath. She has tried switching positions and sitting and cold and hot water. She has found some relief with sitting in warm water baths. She notes a history of daily heroin use for months and stopped recently about 5-6 days ago. She denies alcohol use. She does note daily marijuana use last used yesterday. She does have a history of chlamydia that was treated and denies history of PID. She denies any changes in urination. She has been here to the emergency department for similar symptoms. Nursing Notes Stated Complaint: VOMITING Chief Complaint: Female Abdominal Pain Nursing Notes Reviewed: Yes Allergies: Coded Allergies: No Known Allergies (Verified Allergy, Unknown, 03/13/17) Scheduled Citalopram (Citalopram) 10 Mg Tablet 10 MG PO DAILY Dicyclomine (Bentyl) 10 Mg Capsule 20 MG PO QID Doxycycline Monohyd (Doxycycline Monohyd) 100 Mg Capsule 100 MG PO BID Metronidazole (Flagyl) 500 Mg Tablet 500 MG PO BID Sulfamethoxazole/Trimeth 800-160 mg (Bactrim DS) 1 Each Tablet 1 TABLET PO BID Sulfamethoxazole/Trimeth 800-160 mg (Bactrim DS) 1 Each Tablet 1 TABLET PO BID Scheduled PRN Alprazolam (Alprazolam) 0.5 Mg Tablet 0.5 MG PO TID PRN PRN For Anxiety Ondansetron ODT (Zofran ODT) 4 Mg Tablet 4 MG PO Q4H PRN PRN For Nausea Ondansetron ODT (Zofran ODT) 4 Mg Tablet 4 MG PO Q4H PRN PRN For Nausea General Time Seen by MD: 09:03 Chief Complaint Abdominal pain Hx Obtained From: Patient Past Medical History Past Medical History Chlamydia in 2010 Colitis Reports: Asthma Past Surgical History None reported Smoking History Current Every Day Smoker Social History Drug Use: THC Other Social History: Local resident Ambulatory Status Independent Review of Systems Constitutional: Reports: Chills, Fatigue, Denies: Fever Respiratory: Denies: Shortness of breath Cardiovascular: Denies: Chest pain GI: Reports: Abdominal pain, Diarrhea, Nausea, Vomiting, Denies: Hematemesis Female: Denies: Dysuria, Urinary frequency, Urinary urgency Musculoskeletal: Reports: Back pain Complete sys rev & neg: except as marked. Physical Exam Initial Vital Signs Vital Signs (First) Date Time Temp Pulse Resp B/P Pulse Ox O2 Delivery O2 Flow Rate FiO2 06/13/17 09:08 36.8 57 18 152/90 100 Room Air General/Constitutional: Awake, Alert, Cooperative Distress / Hydration: Positive: Distress moderate Behavior: Positive: Restless Respiratory / Chest: Breath sounds NL, Breath sounds = bilat Cardiovascular: Heart rate NL, Regular rhythm, Heart sounds NL Soft, Diffuse tenderness on abdominal exam, no distention, no rebound, bowel sounds normoactive. Negative Ochoa's Right CVA tenderness Head / Eyes: No scleral icterus Female Genitourinary: Mines Safety Engineer present, Atraumatic Pelvic Exam: Positive: Cervical motion tend... Interpretation & Diagnostics Interpretation & Diagnostics: PROCEDURE: US PELVIC SONOGRAM + TRANSVAGINAL SONOGRAM IMPRESSION: 1. Unremarkable pelvic ultrasound. No findings to explain patient's pelvic pain. Lab Results Interpretation Result Diagram: 06/13/17 0940 06/13/17 0940 Test 06/13/17 09:40 06/13/17 10:49 06/13/17 16:45 White Blood Count 10.4th/mm3 (3.8-10.1) Red Blood Count 4.86mil/mm3 (3.90-5.20) Hemoglobin 13.8g/dL (12.0-15.6) Hematocrit 41.9% (35.0-46.0) Mean Corpuscular Volume 86.2fL (81-100) Mean Corpuscular Hemoglobin 28.4pg (27.0-35.0) Mean Corpuscular Hemoglobin Concent 32.9% (32.0-37.0) Red Cell Distribution Width 13.5% (12.3-15.4) Platelet Count 282bil/L (150-400) Neutrophils (%) (Auto) 78.0% (40-74) Lymphocytes (%) (Auto) 17.0% (14-46) Monocytes (%) (Auto) 3.6% (4-12) Eosinophils (%) (Auto) 0.9% (0-5) Basophils (%) (Auto) 0.3% (0-3) Erythrocyte Sedimentation Rate 15mm/hr (0-32) Sodium Level 141mEq/L (134-144) Potassium Level 3.9mEq/L (3.5-5.2) Chloride Level 101mEq/L (97-108) Carbon Dioxide Level 22mmol/L (18-29) Blood Urea Nitrogen 9mg/dL (6-20) Creatinine 0.78mg/dL (0.57-1.00) Estimat Glomerular Filtration Rate 132mL/min (>59) Glucose Level 111mg/dL (60-99) Calcium Level 9.9mg/dL (8.5-10.1) Magnesium Level 2.1mg/dL (1.6-2.6) Total Bilirubin 0.5mg/dL (0.0-1.2) Aspartate Amino Transf (AST/SGOT) 14U/L (0-50) Alanine Aminotransferase (ALT/SGPT) 10U/L (0-32) Alkaline Phosphatase 74U/L (25-150) Total Creatine Kinase 97U/L (21-215) Total Protein 8.1g/dL (6.4-8.4) Albumin 4.4g/dL (3.4-5.0) Lipase 30U/L (13-60) Procalcitonin 0.17ng/mL (0.00-0.08) Urine Color Yellow (YELLOW) Urine Appearance Slightly cloudy Urine pH 6.5 (5.0-8.0) Urine Specific [place] 1.020 (1.003-1.035) Urine Protein Negativemg/dL (NEG,TRACE) Urine Glucose (UA) Negativemg/dL (NEGATIVE) Urine Ketones 15mg/dL (NEGATIVE) Urine Occult Blood Trace (NEGATIVE) Urine Nitrite Negative (NEGATIVE) Urine Bilirubin Negative (NEGATIVE) Urine Urobilinogen Normalmg/dL (NORMAL) Urine Leukocyte Esterase Moderate (NEGATIVE) Urine RBC 0-2/hpf (0-2) Urine WBC 11-50/hpf (0-5) Urine Epithelial Cells Moderate/hpf (NONE-MOD) Urine Crystals None seen (NONE SEEN) Urine Bacteria Few/hpf (NONE-FEW) Urine Hyaline Casts None/lpf (NONE) Urine Granular Casts None seen (NONE SEEN) Urine Waxy Casts None seen (NONE SEEN) Urine Red Blood Cell Casts None seen (NONE SEEN) Urine White Blood Cell Casts None seen (NONE SEEN) Urine Mucus None seen (None Seen) Urine Trichomonas None seen (NONE SEEN) Urine Yeast None (NONE SEEN) Urinalysis Comment None Urine Culture Reflexed Indicated Hold Urine Received (Received) Re-Eval/Medical Decision Med Decision/Clinical Course Med Decision/Clinical Course: Attending note: I saw and personally evaluated this patient. 21-year-old female with diffuse abdominal pain, bedside exam fails to show any acute rebound or guarding. History is somewhat complicated by recent polysubstance abuse. Labs are reassuring, drug screen shows methamphetamine opiates and marijuana. Given the unclear diagnostic picture a CT scan was performed and several laboratory studies to exclude other pathology were done. Patient was medicated with Haldol, Ativan, Benadryl and did not have recurrent vomiting in the ER. Serial abdominal exams performed by myself failed to show any focal rebound or guarding nor any consistent pattern to her abdominal pain. I performed a pelvic exam where she had white vaginal discharge and cervical motion tenderness. Pelvic ultrasound is unremarkable. She has evidence of UTI on urinalysis and may have PID without complications found on ultrasound. We will plan to treat with 2 g of Rocephin(given in the ER), Flagyl, doxycycline, Bactrim, Zofran. Alsoo suspect there is a component of opiate withdrawal, for this reason she is given a referral to [facility]. Recommend that she follow closely with her primary care. Return and follow-up precautions given This is a 21-year-old female with history of substance abuse with heroin, methamphetamine, marijuana, who presents to the emergency department with abdominal pain. Initial differential diagnosis included opiate withdrawal, kidney stone, pancreatitis, cholecystitis, PID. CT abdomen did not show any evidence of kidney stone, pancreatitis or cholecystitis. Patient did not have positive Ochoa sign so a low suspicion for cholecystitis. UA showed moderate leukocyte esterase, WBC 11-50 with trace blood. Patient was given Haldol, Benadryl to try to settle her down as she was quite restless and did not work very well. Ativan was given and patient slept for several hours. Patient reported not feeling any better upon awakening. Pelvic exam was done and patient had severe cervical motion tenderness with some discharge. Concern is for PID so pelvic ultrasound was ordered. Rocephin and doxycycline were given. Clue cells were seen on wet mount, so flagyl was given. Pelvic Ultrasound was found to be unremarkable. Patient given doxycycline and Bactrim upon discharge. Clinical opiate withdrawal scale (COWS) score was 20, showing moderate withdrawal. Patient reports stopping heroin 5-6 days prior. Will get her set up with [facility]. Discharge & Departure Primary Impression: PID (acute pelvic inflammatory disease) Additional Impressions: Opiate withdrawal UTI (urinary tract infection) Urinary tract infection type: acute cystitis Hematuria presence: without hematuria Qualified Code: N30.00 - Acute cystitis without hematuria Disposition: Home Discharge Condition All VS Reviewed: Yes Condition: Stable Additional Instructions: You have a UTI and may have a pelvic infection. You were treated with Rocephin for this. Take Bactrim and doxycycline to treat this. Follow-up with her regular doctor in the next few days. Also we suspect that you are suffering from withdrawal symptoms. Follow-up with [facility]. You can call in the morning in order to schedule a close follow-up appointment. Return to the ER if you develop high fever, persistent vomiting, lethargy, or other concerns. Referrals: Melvina Daly MD (PCP) Attending Statment The patient was seen and examined together with Dr. dacosta on 06/13/17 and I have added additional information to the note above. Jude Smith DO Jun 13, 2017 09:40 Sha Dacosta DO Jun 13, 2017 10:03 Xander Chanel Jun 13, 2017 16:43
[2017-06-13 09:49] LABS: BASOPHILS % (AUTO) 0.3 % (0-3); EOSINOPHILS % (AUTO) 0.9 % (0-5); MONOCYTES % (AUTO) 3.6 % (4-12); Mean Corpuscular Hemoglobin 28.4 pg (27.0-35.0); Mean Corpuscular Volume 86.2 fL (81-100); Platelet Count 282 bil/L (150-400)
[2017-06-13 10:00] LABS: Magnesium 2.1 mg/dL (1.6-2.6)
--- NOTE | 2017-06-13 11:27 | DRSVH ---
PROCEDURE: CT ABDOMEN AND PELVIS WITH CONTRAST ([id number]) INDICATIONS: diffuse abd pain, vomiting, IVDA TECHNIQUE: After the administration of oral and intravenous contrast, 5 mm thick sections acquired from the diap hragms to the symphysis. 5 mm thick coronal and sagittal reformats were performed. For radiation do se reduction, the following was used: automated exposure control, adjustment of mA and/or kV accordi ng to patient size. COMPARISON: [facility], CT, CT ABD PELVIS W CON, 03/13/2017, 7:15. FINDINGS: Image quality: Suboptimal related to motion artifact in the beam hardening artifact from the patient' s arms, which are positioned on the sides. This does result in difficulty evaluating the solid organ s of the upper abdomen. ABDOMEN: Lung bases: Lung bases are clear. Heart size is normal. Solid organs: The liver is hypodense when compared to the spleen. No focal liver lesions are evident . The gallbladder is not adequately visualized. The spleen is not enlarged. The adrenals and pancr eas appear to be within normal limits. The kidneys are unremarkable and demonstrate symmetric enhanc ement. No hydronephrosis or definite renal calculi are appreciated. Peritoneum and bowel: The stomach, duodenum, and remainder of the small bowel loops are nondilated. The appendix is well-visualized and normal in size. No definite mesenteric inflammation is appreciat ed. No free fluid, loculated fluid collection or free air is evident within the abdomen. Nodes and vessels: No retroperitoneal or mesenteric adenopathy. Aorta and inferior vena cava are no rmal in caliber. Bones: Image osseous structures are age-appropriate. PELVIS: Genitourinary: Bladder wall thickness is normal. The uterus and ovaries are not enlarged. However, the structures are not well evaluated on CT. Miscellaneous: No inguinal hernias or adenopathy. A small amount of free fluid is identified within the pelvis. No loculated fluid collections or free air is evident. Bones: No suspicious bony lesions. No acute fractures are evident. IMPRESSION: 1. No definite acute abnormality within the abdomen or pelvis. 2. Small amount of free fluid within the pelvis may be physiologic. If there is clinical concern fo r ovarian pathology, please consider pelvic ultrasound for further evaluation. 3. The liver is hypodense when compared to the spleen, which is nonspecific and may be related to he patic steatosis. 4. No bowel obstruction. 5. Normal appendix. Dictated by: Facundo Turcios M.D. on 06/13/2017 at 10:21 Approved by: Facundo Turcios M.D. on 06/13/2017 at 10:25
[2017-06-13 11:33] VITALS: BP 144/100; PULSE 64; O2SAT 99
[2017-06-13 11:34] LABS: APPEARANCE,URINE SLIGHTLY CLOUDY (CLEAR,HAZY); COLOR,URINE YELLOW (YELLOW); OCCULT BLOOD,URINE TRACE (NEGATIVE); PH,URINE 6.5 (5.0-8.0); UROBILINOGEN,URINE NORMAL (NORMAL)
[2017-06-13] MEDS ORDERED: cefTRIAXone Inj 2,000 MG in Dextrose 5% Minibag Plus 50 ML IV ONE (13:25)
[2017-06-13 14:15] VITALS: PULSE 55; O2SAT 99
[2017-06-13 15:39] VITALS: BP 149/79; PULSE 58; RESP 13; O2SAT 97
[2017-06-13] MEDS ORDERED: SULF1TAB7 PO (18:37)
[2017-06-13] MEDS ORDERED: DOXY100C43 PO (18:37)
--- NOTE | 2017-06-13 18:37 | DRSVH ---
PROCEDURE: US PELVIC SONOGRAM + TRANSVAGINAL SONOGRAM INDICATIONS: pelvic pain, concern for PID, TOA TECHNIQUE: Real-time scanning was performed of the pelvic organs, with image documentation. Additional endovagi nal scanning was necessary due to incomplete visualization of the adnexal and endometrial structures by transabdominal scanning. COMPARISON: None. FINDINGS: Transabdominal scanning: Limited scanning through the kidneys shows no hydronephrosis. No pathologi c free abdominal or pelvic fluid. Endovaginal scanning: Uterus: Uterus is normal in size at 7.0 x 3.1 x 5.0 cm. The endometrium measures 6.5 mm in combined thickness. Ovaries: The right ovary measures 3.8 x 2.3 x 1.9 cm and demonstrates normal echotexture and good blo od flow.. The left ovary measures 3.2 x 2.0 x 2.2 cm and demonstrates normal echotexture and good blo od flow. IMPRESSION: 1. Unremarkable pelvic ultrasound. No findings to explain patient's pelvic pain. Dictated by: Danyell Mercer M.D. on 06/13/2017 at 18:34 Approved by: Danyell Mercer M.D. on 06/13/2017 at 18:35
[2017-06-13] MEDS ORDERED: ONDA4TAB9 PO (18:49)
[2017-06-13] MEDS ORDERED: METR500T PO (18:49)
[2017-06-13 18:58] VITALS: BP 136/79; PULSE 55; RESP 16; O2SAT 100
== END 2017-06-13 18:59 | disposition home or self-care (01) ==
LOC: SED 08:54
DX: N73.9 Female pelvic inflammatory disease, unspecified (principal); F11.23 Opioid dependence with withdrawal; N30.00 Acute cystitis without hematuria; F41.9 Anxiety disorder, unspecified; F32.9 Major depressive disorder, single episode, unspecified; J45.909 Unspecified asthma, uncomplicated; F17.200 Nicotine dependence, unspecified, uncomplicated
CPT/HCPCS: 36415; 74177; 76830; 76856; 80053; 81000; 81002; 81025; 82550; 83690; 83735; 84145; 85025; 85651; 87086; 87088; 87210; 87591; 96361; 96365; 96375; 99285; J0696; J1200; J1630; J2060; J7030; Q9967